=== PATIENT | female | born 1960 | race Caucasian/White ===

== ENCOUNTER 2022-01-10 11:37 | Emergency (ER) | payer BC, SELFPAY ==
--- NOTE | ~2022-01-10 | XR_ITS ---
EXAMINATION: XR ribs RT 2V w CXR 2V INDICATION: Right-sided chest pain TECHNIQUE: PA and lateral views of the chest and 3 views of the right ribs were obtained. COMPARISON: 09/27/2017 FINDINGS: The lungs are free of acute opacities. There is no pleural effusion or pneumothorax. The ca rdiomediastinal silhouette is normal. No displaced rib fracture is identified. There is moderate thor acic spondylosis. IMPRESSION: 1. No acute cardiopulmonary abnormality or evidence of displaced rib fracture. Reviewed, dictated and finalized at location A.
--- NOTE | ~2022-01-10 | CT_ITS ---
EXAMINATION: CT abdomen pelvis w con EXAM DATE: 01/10/2022 15:02 INDICATION: Fall blunt trauma, RUQ pain. TECHNIQUE: Spiral CT of the abdomen and pelvis was performed following intravenous injection of 100 m L Omnipaque 350. Axial, coronal and sagittal images of the abdomen and pelvis were reviewed. The do se-length product (DLP) for this examination was 1203.26 mGy-cm. The exposure was tailored according to patient size (auto mA exposure control), and iterative reconstruction (ASIR) was used as addition al dose reduction technique. There is no prior study for comparison. FINDINGS: No solid organ injury. There are no acute fractures identified. The liver, spleen, adrena l glands and pancreas are unremarkable. Gallbladder is unremarkable. No biliary obstruction. Amadou l and splenic veins are patent. Kidneys enhance symmetrically. There is no hydronephrosis. The ut erus is anteverted and morphologically normal. The bladder is unremarkable. There is no retroperit shirley or pelvic lymphadenopathy. The appendix is normal. The stomach and small bowel are unremarkable. There is expected amount of c olonic stool. No free intraperitoneal gas. There is cardiomegaly. The lung bases are unremarkabl e. Chronic mild to moderate L5 burst fracture with only about 2 mm retropulsion superior endplate. N o spondylolysis. IMPRESSION: 1. No acute intra-abdominal findings. 2. Chronic mild to moderate L5 burst fracture. Reviewed, dictated and finalized at location B.
--- NOTE | ~2022-01-10 | XR_ITS ---
EXAMINATION: XR hand RT min 3V DATE: 01/10/2022 12:14 INDICATION: Right hand injury and swelling. TECHNIQUE: 3 views of right hand were obtained. COMPARISON: None. FINDINGS: Bone alignment is normal. No acute fracture. There is an old fracture deformity of distal r adius with 4 degrees dorsal tilt of the distal articular surface. There is moderate osteoarthritis of triscaphe joint and mild osteoarthritis of first carpal metacarpal joint. There is mild osteoarthrit is of most of the interphalangeal joints. IMPRESSION: 1. Polyarticular osteoarthritis. 2. Fracture deformity of distal radius, likely chronic. Reviewed, dictated and finalized at location A.
[2022-01-10 11:39] VITALS: PULSE 82; RESP 18; TEMP 36.2; O2SAT 98
--- NOTE | 2022-01-10 13:30 | ED.FALL ---
HPI - Fall General Chief Complaint: Fall Stated Complaint: fall/hand injury Time Seen by Provider: 01/10/22 13:22 Source: patient and RN notes reviewed Mode of arrival: ambulatory Limitations: no limitations History of Present Illness HPI Narrative: This a 61 year old female who presents for evaluation of right rib pain and right upper abdominal pain s/p fall. Patient states she accidentally fell on gum balls yesterday. She fell onto right right rib and abdomen. She also hit her right hand on the ground. She denies hitting head, LOC, or neck pain . She has pain worse with breathing but she denies shortness of breath. She has swelling and pain to her right hand. She denies fever, nausea, vomiting or dizziness. She denies taking anticoagulation. Related Data Allergies Allergy/AdvReac Type Severity Reaction Status Date / Time No Known Allergies Allergy Unknown Unverified 09/27/17 14:44 Review of Systems Review of Systems: All systems reviewed & are unremarkable except as noted in HPI and below PMFSH Past Medical History Medical History (Updated 01/10/22 @ 15:28 by Elizabet Hamilton MD) Anxiety Diabetes mellitus Hyperlipidemia Hypertension Surgical History Surgical History (Updated 01/10/22 @ 13:33 by Elizabet Hamilton MD) H/O section Social History Social History (Updated 01/10/22 @ 13:33 by Elizabet Hamilton MD) Smoking status: Never smoker Exam Const: General: no acute distress and alert Orientation/consciousness: patient oriented x3 HENMT: Head: normocephalic and atraumatic Face and sinus: normal facial exam, sinuses nontender and face symmetric Mouth: Yes Normal oral and palatal mucosa present, Yes lip normal, Yes oropharynx normal and Yes moist mucous membranes Eyes: Pupils: Equal, round and reactive pupils present EOM: EOMs intact bilaterally Neck: Neck: normal visual inspection Chest: Chest palpation & inspection: tenderness Other: right breast ecchymosis Resp: Effort & Inspection: normal respiratory effort Auscultation: clear to auscultation bilaterally Cardio: Rate: regular rate Rhythm: regular rhythm Heart sounds: no murmurs GI: GI Palp: Yes Soft to palpation, Yes Tenderness to palpation present (GI) (RUQ) and Yes Guarding due to palpation present (GI) Auscultation: normal bowel sounds Back/Spine/Pelvis: Back: no CVA tenderness Skin: Other: right breast ecchymosis Neuro: General: patient oriented x3, moves all extremities and CN's II-XI intact bilaterally Psych: Mental Status: mental status grossly normal Affect: normal affect Course Reevaluation(s) Reevaluation #1: I Discussed with patient no acute fractures or intraabdominal injuries that are acute. She is aware of chronic lumbar fracture and is not having pain. Date: 01/10/22 Time: 15:25 Vital Signs Vital signs: Vital Signs Temperature 97.2 F L 01/10/22 11:39 Pulse Rate 82 01/10/22 11:39 Respiratory Rate 18 01/10/22 11:39 Pulse Oximetry 98 01/10/22 11:39 Temperature 97.2 F L 01/10/22 11:39 Pulse Rate 58 L 01/10/22 15:30 Respiratory Rate 16 01/10/22 15:30 Blood Pressure 178/80 H 01/10/22 15:30 Pulse Oximetry 97 01/10/22 15:30 MDM - Fall Lab Data Attestation: I reviewed the patient's lab results. Result diagrams: 01/10/22 13:35 01/10/22 13:35 Labs: Lab Results 01/10/22 01/10/22 01/10/22 Range/Units 13:35 13:35 13:35 WBC 7.0 (4.5-10.0) K/mm3 RBC 3.58 L (4.2-5.4) M/mm3 Hgb 11.7 L (12.0-15.0) g/dL Hct 36.4 L (37.0-47.0) % MCV 101.7 H (80-100) fl MCH 32.7 (26-34) pg MCHC 32.1 (32-36) g/dl RDW 12.3 (11.5-14.5) % Plt Count 273 (150-375) k/mm3 MPV 9.4 (7.4-10.4) fl Immature Gran % (Auto) 0.3 (0-0.5) % Neut % (Auto) 65.7 (45.5-73.1) % Lymph % (Auto) 22.6 (18.3-44.2) % [place] % (Auto) 9.7 H (2.6-8.5) % Eos % (Auto) 1.4 (0-4.4) % Baso % (Auto) 0.3 (0.2-1
[2022-01-10 13:45] LABS: Basophils Percent Auto 0.3 % (0.2-1.2); Eosinophils Absolute Auto 0.1 K/mm3 (0-0.3); Eosinophils Percent Auto 1.4 % (0-4.4); Hematocrit 36.4 % (37.0-47.0); Hemoglobin 11.7 g/dL (12.0-15.0); Immature Granulocyte Absolute 0.02 K/mm3 (0.00-0.031); Immature Granulocyte Percent A 0.3 % (0-0.5); Lymphocytes Absolute Auto 1.58 K/mm3 (0.9-3.2); Lymphocytes Percent Auto 22.6 % (18.3-44.2); Mean Corpuscular HGB Conc 32.1 g/dl (32-36); Mean Corpuscular Hemoglobin 32.7 pg (26-34); Mean Corpuscular Volume 101.7 fl (80-100); Mean Platelet Volume 9.4 fl (7.4-10.4); Monocytes Absolute Auto 0.7 K/mm3 (0.1-0.6); Monocytes Percent Auto 9.7 % (2.6-8.5); Neutrophils Absolute Auto 4.6 K/mm3 (1.3-6.7); Neutrophils Percent Auto 65.7 % (45.5-73.1); Platelet Count Result 273 k/mm3 (150-375); Red Blood Count 3.58 M/mm3 (4.2-5.4); Red Cell Distribution Width 12.3 % (11.5-14.5)
[2022-01-10 14:01] LABS: Prothrombin Time 13.1 Seconds (11.1-14.7)
[2022-01-10 14:02] LABS: Partial Thromboplastin Time 27.2 SECONDS (22.3-36.8)
[2022-01-10 14:04] LABS: Alanine Aminotransferase 23 U/L (4-35); Albumin Level 4.5 g/dL (3.5-5.1); Alkaline Phosphatase 86 U/L (38-126); Anion Gap 7 mmol/L (8-16); Aspartate Amino Transferase 27 U/L (14-36); Bilirubin,Total 0.7 mg/dL (0.2-1.3); Blood Urea Nitrogen 19 mg/dL (7-17); Calcium 9.1 mg/dL (8.4-10.2); Carbon Dioxide 30 mmol/L (22-30); Chloride 99 mmol/L (98-107); Estimated CRCL calculation 75 ml/min; Estimated Glomerular Filt Rate > 60; Glucose 106 mg/dL (65-110); Potassium 3.7 mmol/L (3.4-5.0); Sodium 136 mmol/L (137-145)
[2022-01-10 15:30] VITALS: BP 178/80; PULSE 58; RESP 16; O2SAT 97
== END 2022-01-10 15:51 | disposition home or self-care (01) ==
PROVIDERS: Emergency Provider General Practice; PCP Internal Medicine
DX: S30.1XXA Contusion of abdominal wall, initial encounter (principal); S20.01XA Contusion of right breast, initial encounter; S60.221A Contusion of right hand, initial encounter; E78.5 Hyperlipidemia, unspecified; E11.9 Type 2 diabetes mellitus without complications; I10 Essential (primary) hypertension; M18.9 Osteoarthritis of first carpometacarpal joint, unspecified; M19.031 Primary osteoarthritis, right wrist; W01.0XXA Fall on same level from slipping, tripping and stumbling without subsequent striking against object, initial encounter
CPT/HCPCS: 36415; 71046; 71100; 73130; 74177; 80053; 85025; 85610; 85730; 96374; 99284; J0131; Q9967

== ENCOUNTER 2022-01-23 12:56 | Observation (INO) | payer BC, SELFPAY ==
[2022-01-23] VITALS (11 sets, daily range): BP systolic 134–179; BP diastolic 42–75; PULSE 60–70; RESP 13–20; TEMP 36.5–37.2; O2SAT 94–98; BMI 42.0
--- NOTE | ~2022-01-23 | XR_ITS ---
EXAMINATION: XR chest 2V DATE: 01/23/2022 13:28 INDICATION: Left-sided chest pain radiating to the back. Right-sided rib pain post fall. TECHNIQUE: PA and lateral views of the chest were obtained. COMPARISON: Chest radiograph dated 01/10/2022 FINDINGS: The lungs remain clear with no focal airspace opacities, pulmonary edema, pleural effusion or pneumot horax. Or dramatically with prominent left paracardial fat pad. Visualized bones and soft tissues are unremarkable. IMPRESSION: 1. Cardiomegaly. No acute cardiopulmonary disease. Reviewed, dictated and finalized at location A.
--- NOTE | 2022-01-23 13:05 | ECG_ITS ---
Measurements Intervals [place] Rate: 63 P: 81 AK: 182 QRS: 77 QRSD: 101 T: 48 QT: 370 QTc: 380 Interpretive Statements SINUS RHYTHM WITH MARKED SINUS ARRHYTHMIA OTHERWISE NORMAL ECG NO PREVIOUS ECG AVAILABLE FOR COMPARISON Electronically Signed On 01-24-2022 16:06:25 CDT by Lm Andrade M.D.
[2022-01-23 13:11] LABS: Glucose Point of Care 73 mg/dl (65-105)
[2022-01-23 13:18] LABS: Basophils Percent Auto 0.4 % (0.2-1.2); Eosinophils Absolute Auto 0.2 K/mm3 (0-0.3); Hematocrit 36.5 % (37.0-47.0); Hemoglobin 12.5 g/dL (12.0-15.0); Immature Granulocyte Absolute 0.03 K/mm3 (0.00-0.031); Immature Granulocyte Percent A 0.4 % (0-0.5); Lymphocytes Absolute Auto 1.81 K/mm3 (0.9-3.2); Lymphocytes Percent Auto 23.8 % (18.3-44.2); Mean Corpuscular HGB Conc 34.2 g/dl (32-36); Mean Corpuscular Hemoglobin 33.3 pg (26-34); Mean Corpuscular Volume 97.3 fl (80-100); Mean Platelet Volume 9.2 fl (7.4-10.4); Monocytes Absolute Auto 0.9 K/mm3 (0.1-0.6); Monocytes Percent Auto 11.7 % (2.6-8.5); Neutrophils Absolute Auto 4.7 K/mm3 (1.3-6.7); Neutrophils Percent Auto 61.7 % (45.5-73.1); Platelet Count Result 351 k/mm3 (150-375); Red Blood Count 3.75 M/mm3 (4.2-5.4); Red Cell Distribution Width 12.4 % (11.5-14.5); White Blood Count 7.6 K/mm3 (4.5-10.0)
--- NOTE | 2022-01-23 13:20 | ED.CHESTPAIN ---
HPI - Chest Pain General Chief Complaint: Chest Pain Stated Complaint: chest pain Time Seen by Provider: 01/23/22 13:04 Source: patient Mode of arrival: ambulatory Limitations: no limitations History of Present Illness HPI narrative: Patient is a 61-year-old female complaining of chest pain, midsternal, tightness, was 8 out of 10, currently denies any pain, radiating to back that started this morning. Patient denies any shortness of breath, abdominal pain, nausea, vomiting, diaphoresis, fever or chills. Related Data Allergies Allergy/AdvReac Type Severity Reaction Status Date / Time No Known Allergies Allergy Unknown Unverified 09/27/17 14:44 Review of Systems Review of Systems: All systems reviewed & are unremarkable except as noted in HPI and below Constitutional: Constitutional: Denies body ache(s), Denies chills, Denies excessive sweating, Denies fatigue, Denies fever(s), Denies headache(s), Denies lethargy, Denies malaise, Denies weakness and Denies weight loss Eyes: Eyes: Denies blurry vision, Denies change in vision and Denies loss of vision ENT: Denies dizziness, Denies ear discharge, Denies headache(s), Denies lip swelling, Denies epistaxis, Denies nasal congestion, Denies neck pain, Denies throat swelling and Denies tongue swelling Cardiovascular: Cardiovascular: Denies diaphoresis, Denies rapid heart rate, Denies edema, Denies irregular heart rhythm, Denies lightheadedness, Denies palpitations, Denies dyspnea and Denies dyspnea on exertion Respiratory: Respiratory: Denies chest congestion, Denies cough, Denies hemoptysis, Denies dyspnea and Denies dyspnea on exertion Gastrointestinal: Gastrointestinal: Denies abdominal pain, Denies melena, Denies hematochezia, Denies diarrhea, Denies nausea, Denies vomiting and Denies hematemesis Musculoskeletal: Musculoskeletal: Denies abnormal gait, Denies deformity, Denies joint swelling, Denies limited range of motion, Denies neck pain and Denies numbness Neurologic: Denies Abnormal speech present, Denies abnormal gait, Denies confusion, Denies dizziness, Denies headache(s), Denies focal weakness, Denies loss of vision, Denies numbness, Denies Other visual disturbances, Denies Sensory deficit (Neuro) and Denies weakness Psychiatric: Psychiatric: Denies confusion, Denies depression, Denies auditory hallucinations, Denies homicidal ideation and Denies suicidal ideation Endocrine: Endocrine: Denies cold intolerance, Denies excessive sweating, Denies fatigue, Denies heat intolerance and Denies palpitations Hematologic/Lymphatic: Hematologic/Lymphatic: Denies easy bleeding and Denies easy bruising Allergic/Immunologic: Allergic/Immunologic: Denies lip swelling, Denies throat swelling and Denies tongue swelling PMFSH Past Medical History Medical History Anxiety Diabetes mellitus Hyperlipidemia Hypertension Surgical History Surgical History H/O section Social History Social History Smoking status: Never smoker Exam Const: General: cooperative, healthy appearing, comfortable, no acute distress, well developed, alert and awake; No confusion Orientation/consciousness: oriented to person, oriented to place, oriented to time, patient oriented x3 and No confusion Limitations: no limitations HENMT: Head: normal to inspection, normocephalic and atraumatic Ears: hearing grossly normal bilaterally, TM normal on the right and TM normal on the left General nose exam: Normal external nose present, Normal nares present and No nasal discharge present Face and sinus: normal facial exam Mouth: Yes Normal oral and palatal mucosa present, Yes lip normal, Yes tongue normal and Yes oropharynx normal Throat: posterior oropharynx normal, tonsils normal and uvula midline Eyes: General: appearance normal, both eyes and all
[2022-01-23 13:29] LABS: INR 0.9
[2022-01-23 13:30] LABS: Partial Thromboplastin Time 25.8 SECONDS (22.3-36.8)
[2022-01-23 13:37] LABS: Alanine Aminotransferase 26 U/L (4-35); Albumin Level 4.6 g/dL (3.5-5.1); Alkaline Phosphatase 89 U/L (38-126); Anion Gap 8 mmol/L (8-16); Aspartate Amino Transferase 39 U/L (14-36); Bilirubin,Total 0.5 mg/dL (0.2-1.3); Blood Urea Nitrogen 27 mg/dL (7-17); Calcium 9.3 mg/dL (8.4-10.2); Carbon Dioxide 29 mmol/L (22-30); Chloride 102 mmol/L (98-107); Estimated CRCL calculation 67 ml/min; Estimated Glomerular Filt Rate > 60; Glucose 65 mg/dL (65-110); Potassium 4.2 mmol/L (3.4-5.0); Sodium 139 mmol/L (137-145)
[2022-01-23 13:44] LABS: Troponin I < 0.012 ng/mL (0.000-0.034)
[2022-01-23] MEDS: ASPIRIN 81 MG CHEWABLE TABLET 324 MG PO (14:16)
[2022-01-23] MEDS: LORazepam (*CRX) 0.5 MG TABLET PO (15:26)
[2022-01-23 16:53] LABS: Troponin I < 0.012 ng/mL (0.000-0.034)
--- NOTE | 2022-01-23 17:01 | PM.IMHP ---
H&P: HPI History of Present Illness Date/Time: Patient was placed observation status for expected length of stay less than 23 hours for management, will plan to re-evaluate tomorrow for improvement. 01/23/22 17:01 Chief Complaint: Chest pain Narrative: Ms. Buchanan is a 61-year-old female who presented emergency room with complaints of chest discomfort. Patient states that she was having a telephone conversation with her sister and when she got off the phone she began having a very sharp pain under her left breast. Patient states she then began having pain in her middle back. Patient states that she is not feel the pain was associated to each other. Patient states the pain under her left breast did not radiate through to her back. Patient denied any associated shortness of breath, diaphoresis, nausea, or vomiting. Patient states that when she rested on her couch and tried to relax the pain felt much improved. Patient states she has been under a large amount of stress recently in does believe that this could be a part of the reason she had chest discomfort. Patient states she is chest pain-free at this on 01/10 after falling and having right-sided pain. Patient states that since her fall she has continued to have right-sided pain under her right breast. Patient states the pain has been improving on a daily basis. Patient states that she has been placed on Xanax recently for anxiety which has been very helpful. Patient states she does have a known history of diabetes mellitus type 1. Patient states she has been diabetic for 50 years. Patient states she monitors her blood glucose is very closely and her last hemoglobin A1c was 6.2. Patient also had an history of hypertension, anxiety, depression, dyslipidemia, and asthma. Review of Systems Review of Systems: A 12 point review of systems was completed patient all pertinent positive and negative per HPI the remainder are unremarkable. [facility] Past Medical History Medical History (Updated 01/23/22 @ 17:11 by Evangelina Vogel APRN) Anxiety Asthma Diabetes mellitus Hyperlipidemia Hypertension Surgical History Surgical History H/O section Family History Family History (Updated 01/23/22 @ 17:10 by Evangelina Vogel APRN) Father Heart disease, Onset Age: 70 Mother Heart disease, Onset Age: 70 Sibling Heart valve replaced Social History Social History Smoking status: Never smoker Meds Home Medications and Allergies Allergies Allergy/AdvReac Type Severity Reaction Status Date / Time No Known Allergies Allergy Unknown Unverified 09/27/17 14:44 Vital Signs Vital Signs - 24 hr 01/23/22 12:59 01/23/22 13:13 01/23/22 14:16 Temperature 37.2 C Pulse Rate 70 64 69 Respiratory Rate 13 13 Blood Pressure 160/75 H 179/67 H Pulse Oximetry 98 98 01/23/22 15:25 01/23/22 17:00 Temperature Pulse Rate 69 60 Respiratory Rate 18 13 Blood Pressure 167/55 H 169/69 H Pulse Oximetry 94 98 Exam Narrative: Constitutional: Patient is a 61 year old female who is well-nourished in no acute distress. Patient is alert and oriented x3 HEENT: Moist mucous membranes. No scleral icterus. No lymphadenopathy. Neck: No carotid bruits noted no JVD noted Lungs: Lung sounds are clear to auscultation bilaterally. No accessory muscle use. No rhonchi, rales, or wheezes noted. Cardiovascular: Apical pulse is regular rate and rhythm. S1-S2 noted, no S3 or S4 noted. No gallops, murmurs, or rubs noted. Abdomen: Soft, round, and nontender. No palpable masses. Extremities: No edema. Nontender. Skin: No rashes or lesions. Warm and dry. Skin is intact. Neurological: No focal neurological deficits. Cranial nerves II-XII grossly intact. Psychiatric: Cooperative, appropriate affect. Patient is very tearful at this time. H&P: Results Labs Labs:
--- NOTE | 2022-01-23 17:49 | PC.NURSE ---
Report received by ROSEANNA Monroe at [id number]. All questions answered and plan of care reviewed. Patient to go to IMU room 210.
--- NOTE | 2022-01-23 17:50 | ADMGEN ---
This patient, Anastasia Buchanan, was admitted to IMU Room 210-01 at 1748. Patient/family oriented to hospital policies and general routines including ID bracelet, bed and alarms, visiting hours, pain management, procedures, bathroom and other care routines, personal items, smoking policy, room service/diet, and visiting hours. Information on how to activate the Rapid Response Team has been discussed. Patient/Family are encouraged to report perceived risks to care and to ask questions if they do not understand what they are told or what they should do.
[2022-01-23 19:48] LABS: Troponin I < 0.012 ng/mL (0.000-0.034)
--- NOTE | 2022-01-23 21:00 | PC.NURSE ---
According to patient's dexcom patient's blood sugar is 189.
[2022-01-23] MEDS: ACETAMINOPHEN 325 MG TABLET 650 MG PO (21:02)
[2022-01-23] MEDS: INSULIN ASPART (*BKC) 100 UNITS/ML 10 UNITS SUB-Q (21:07)
[2022-01-23] MEDS: hydrALAZINE HCL 50 MG TABLET PO (22:30)
[2022-01-23] MEDS: INSULIN GLARGINE (*BKC) 100 UNITS/ML 50 UNITS SUB-Q (22:30)
[2022-01-24] VITALS (10 sets, daily range): BP systolic 131–144; BP diastolic 53–61; PULSE 53–75; RESP 16–20; TEMP 36.6–36.9; O2SAT 96–99; BMI 42.0
[2022-01-24 05:48] LABS: Basophils Percent Auto 0.4 % (0.2-1.2); Eosinophils Absolute Auto 0.1 K/mm3 (0-0.3); Eosinophils Percent Auto 1.9 % (0-4.4); Hemoglobin 11.8 g/dL (12.0-15.0); Immature Granulocyte Absolute 0.03 K/mm3 (0.00-0.031); Immature Granulocyte Percent A 0.4 % (0-0.5); Lymphocytes Absolute Auto 2.03 K/mm3 (0.9-3.2); Lymphocytes Percent Auto 29.5 % (18.3-44.2); Mean Corpuscular HGB Conc 32.8 g/dl (32-36); Mean Corpuscular Hemoglobin 32.9 pg (26-34); Mean Corpuscular Volume 100.3 fl (80-100); Mean Platelet Volume 9.3 fl (7.4-10.4); Monocytes Absolute Auto 0.8 K/mm3 (0.1-0.6); Monocytes Percent Auto 11.5 % (2.6-8.5); Neutrophils Absolute Auto 3.9 K/mm3 (1.3-6.7); Neutrophils Percent Auto 56.3 % (45.5-73.1); Platelet Count Result 338 k/mm3 (150-375); Red Blood Count 3.59 M/mm3 (4.2-5.4); Red Cell Distribution Width 12.4 % (11.5-14.5); White Blood Count 6.9 K/mm3 (4.5-10.0)
[2022-01-24 06:02] LABS: Anion Gap 6 mmol/L (8-16); Blood Urea Nitrogen 20 mg/dL (7-17); Calcium 9.1 mg/dL (8.4-10.2); Carbon Dioxide 30 mmol/L (22-30); Chloride 104 mmol/L (98-107); Estimated CRCL calculation 67 ml/min; Estimated Glomerular Filt Rate > 60; Glucose 49 mg/dL (65-110); Potassium 3.6 mmol/L (3.4-5.0); Sodium 140 mmol/L (137-145)
[2022-01-24] MEDS: hydrALAZINE HCL 50 MG TABLET PO ×2 (06:07→14:59)
[2022-01-24 06:23] LABS: Glucose Point of Care 115 mg/dl (65-105)
[2022-01-24 08:45] LABS: Glucose Point of Care 135 mg/dl (65-105)
[2022-01-24] MEDS: INSULIN ASPART (*BKC) 100 UNITS/ML 10 UNITS SUB-Q (08:51)
[2022-01-24] MEDS: UMECLIDINIUM BROMIDE 62.5 MCG ELLIPTA 1 PUFF INHALATION (08:51)
[2022-01-24] MEDS: FLUTICASONE/SALMETEROL 230-21 MCG INHALER 1 PUFF 2 PUFF INHALATION (08:51)
[2022-01-24] MEDS: NEBIVOLOL HCL 5 MG TABLET 10 MG PO (08:52)
[2022-01-24] MEDS: hydroCHLOROthiazide 25 MG TABLET PO (08:52)
[2022-01-24] MEDS: EZETIMIBE 10 MG TABLET PO (08:52)
[2022-01-24] MEDS: ENOXAPARIN 40 MG/0.4 ML SYRINGE SUB-Q (08:52)
[2022-01-24] MEDS: VENLAFAXINE HCL XR 75 MG CAP.ER.24H PO (08:52)
[2022-01-24] MEDS: ROSUVASTATIN 10 MG TABLET 20 MG PO (08:52)
[2022-01-24] MEDS: LOSARTAN POTASSIUM 100 MG TABLET PO (08:53)
[2022-01-24 12:05] LABS: Glucose Point of Care 85 mg/dl (65-105)
[2022-01-24] MEDS: INSULIN ASPART (*BKC) 100 UNITS/ML 6 UNITS SUB-Q (12:32)
--- NOTE | 2022-01-24 12:33 | PM.IMPN ---
Progress Note: A&P Assessment and Plan (1) Chest pain: Code(s): R07.9 - Chest pain, unspecified Status: Acute Assessment and Plan: -serial troponins negative -EKG no ST elevation/depression -had full strength asprin in ED -suspect pain is secondary to stress/anxiety, however with her long hx of DM she would benefit from a stress test -also notes a family hx of bicuspic aortic valve and was told but her brother's cardiothoracic surgeon that she should get an echo -will check echo -cardiology consult placed as she will likely need outpatient follow up. Her is followed by Dr. Andrade and she would like to also join his service. (2) Diabetes mellitus: Code(s): E11.9 - Type 2 diabetes mellitus without complications Status: Acute Assessment and Plan: -pt takes 10 units of insulin TIDWM scheduled and 50 units of Lantus QHS -was running low, 49 this morning, but rebounded quite quickly to 135 with a snack -pt keeps very tight control of her glucose and states being in the 60s/70s is normal for her -I decreased the dose to 6 units scheduled with a low dose sliding scale while hospitalized to avoid any further episodes of hypoglycemia Subjective Date/time seen: 01/24/22 12:33 Interval history: 61 yo female w/ hx of HTN, HLD, DM, anxiety, asthma, admitted for chest pain. Pt states her sharp/stabbing chest pain and back pain resolved overnight after being admitted. She denies cp/sob/nausea/OLEARY/dizziness/N/V/abd pain. She has BLE edema, L>R, but states this has been present all of her life. No LE pain, erythema, or warmth. Review of Systems Review of Systems: All systems reviewed & are unremarkable except as noted in HPI and below Exam Narrative: General: No acute distress, non toxic appearing, extremely anxious, tearful at times Eyes: PERRL, no scleral icterus HEENT: NCAT, external ears normal, MMM Respiratory: No respiratory distress, Lungs CTA bilaterally, no wheezing Cardiovascular: RRR, no murmur Abdominal: Soft, nontender, non distended, no rebound or guarding Musculoskeletal: Moves all 4 extremities, no edema Neurological: A/Ox3, speech clear, no facial asymmetry Skin: Warm, dry, no rashes Psychiatric: Normal affect, anxious mood Objective Data Vital Signs Vital Signs: Vital Signs - 24 hr 01/23/22 12:59 01/23/22 13:13 01/23/22 14:16 Temperature 98.9 F Pulse Rate 70 64 69 Respiratory Rate 13 13 Blood Pressure 160/75 H 179/67 H Pulse Oximetry 98 98 01/23/22 15:25 01/23/22 17:00 01/23/22 17:31 Temperature Pulse Rate 69 60 67 Respiratory Rate 18 13 18 Blood Pressure 167/55 H 169/69 H 168/62 H Pulse Oximetry 94 98 97 01/23/22 17:58 01/23/22 18:00 01/23/22 20:00 Temperature 98.0 F 97.9 F Pulse Rate 68 70 69 Respiratory Rate 14 20 Blood Pressure 143/48 H 140/42 L Pulse Oximetry 98 98 01/23/22 22:00 01/23/22 23:35 01/24/22 00:00 Temperature 97.7 F Pulse Rate 61 63 64 Respiratory Rate 20 Blood Pressure 134/54 L Pulse Oximetry 98 01/24/22 02:00 01/24/22 04:00 01/24/22 06:00 Temperature 97.9 F Pulse Rate 57 L 53 L 64 Respiratory Rate 18 Blood Pressure 133/61 Pulse Oximetry 99 01/24/22 08:00 01/24/22 08:55 01/24/22 10:00 Temperature 98.4 F Pulse Rate 69 72 Respiratory Rate 16 Blood Pressure 144/53 H Pulse Oximetry 98 96 01/24/22 12:22 Temperature 97.9 F Pulse Rate 56 L Respiratory Rate 20 Blood Pressure 131/55 L Pulse Oximetry 97 Intake/Output Intake/Output: Intake & Output 01/21/22 01/22/22 01/23/22 01/24/22 23:59 23:59 23:59 23:59 Intake Total 700 Balance 700 Meds/Results Medications: Active Medications Generic Name Dose Route Start Last Admin Trade Name Freq PRN Reason Stop Dose Admin Acetaminophen 650 mg 01/23/22 16:59 01/23/22 21:02 Acetaminophen 325 Mg Tablet PO 650 mg Q6H PRN Administration Mild Pain (1-3) or Fever [place]
--- NOTE | 2022-01-24 13:15 | PM.CNCAR ---
Assessment and Plan Additional Plan This is a 61-year-old lady with no history of known coronary artery disease but obviously with risk factors particularly longstanding diabetes. Having said that her diabetes is under excellent control. She or symptoms now are rather atypical and not suggestive of myocardial ischemia. I believe since acute coronary syndrome has been ruled out she can be discharged for outpatient workup. I would recommend arrange for a Lexiscan stress test in the office as an outpatient after which I will see her in review the findings. Thank you very much for consulting me to see this nice lady. Lm Andrade MD [facility] History of Present Illness History of Present Illness Consult date/time: 01/24/22 13:15 Consult reason: chest pain Reason For Visit: chest pain Narrative: This is a very pleasant 61-year-old lady am seeing at the request of the hospitalist because of chest pain. She is not known to have any cardiac problems before this and came to the hospital yesterday in the afternoon because of chest pain that began at home. She states that she has been under tremendous amount of stress at home caring for an adult alcoholic son. She was very stressed by this and yesterday started to have which he describes is a warm sensation in the interscapular region of her back. Shortly after that she started to experience some dull pain a mild pressure-like sensation in the soft substernal region altogether this lasted about 15-20 minutes and then subsided. She states that when it was at its worst the pain actually had a sharp stabbing quality to it as well. She notified her as to these symptoms and they decided to come to the emergency room to be evaluated as they are concerned about coronary disease given his history of coronary disease and her history of longstanding diabetes. The patient states that she had a negative emergency room evaluation performed her EKG did look unremarkable as did free troponin levels. He is significantly obese with a BMI of 42 but does not notice any exists history of exertional symptomatology at home in general. She is able to carry out her activities of daily living but is not able to walk vigorously because of asthma as well as some degenerative joint disease in her knees. She does have excellent control of her diabetes she also has a history of hypertension and dyslipidemia. Her primary care is provided by Dr. Russell at [place] and she also has a learning and development associate they are helping to manage her diabetes. She states that her learning and development associate had her undergo a couple of stress tests in the past because of some a intermittent chest pain which have been negative. That was many years ago. She is not reporting any symptoms of orthopnea PND or accumulating edema. She does state that she thinks her blood pressure control has not been ideal lately and has not had any any other new health concerns. Review of Systems Constitutional: Constitutional: Reports no additional constitutional complaints Eyes: Eyes: Reports no additional eye complaints ENT: Reports system reviewed and no additional complaints, except as documented Cardiovascular: Cardiovascular: Reports as per HPI Respiratory: Respiratory: Reports no additional respiratory complaints Gastrointestinal: Gastrointestinal: Reports no additional gastrointestinal complaints Musculoskeletal: Musculoskeletal: Reports no additional musculoskeletal complaints Neurologic: Reports system reviewed and no additional complaints, except as documented Psychiatric: Psychiatric: Reports as per HPI Endocrine: Endocrine: Reports no additional endocrine complaints Hematologic/Lymphatic: Hematologic/Lymphatic: Reports no additional hematologic/lymphatic complaints Allergic/Immunologic: Allergic/Immunologic: Reports no additional allergic/immunologic complaints [facility] Past Medical History Medical History (Updated 01/23/22 @ 17:11 by Evangelina Vogel,
--- NOTE | 2022-01-24 14:06 | PM.DS ---
DS: Admitting Diagnosis Discharge Date 01/24/22 Admitting Diagnosis chest pain DS: Discharge Diagnosis Discharge Diagnosis (1) Chest pain: Code(s): R07.9 - Chest pain, unspecified Status: Acute Assessment and Plan: -serial troponins negative -EKG no ST elevation/depression -had full strength asprin in ED -suspect pain is secondary to stress/anxiety, however with her long hx of DM she would benefit from a stress test -also notes a family hx of bicuspic aortic valve and was told but her brother's cardiothoracic surgeon that she should get an echo -cardiology consult placed. Her is followed by Dr. Andrade and she would like to also join his service. -seen by Dr. Andrade who recommends discharging home and she will follow up for an outpatient stress test -strict return precautions provided (2) Diabetes mellitus: Code(s): E11.9 - Type 2 diabetes mellitus without complications Status: Acute Assessment and Plan: -pt takes 10 units of insulin TIDWM scheduled and 50 units of Lantus QHS -was running low, 49 this morning, but rebounded quite quickly to 135 with a snack -pt keeps very tight control of her glucose and states being in the 60s/70s is normal for her -I decreased the dose to 6 units scheduled with a low dose sliding scale while hospitalized to avoid any further episodes of hypoglycemia -sees her travel professional every 3-4 months, she will continue regular follow up (3) Anxiety: Code(s): F41.9 - Anxiety disorder, unspecified Status: Inactive Assessment and Plan: -pt going through some serious stressors in her life including an adult son currently in rehab -she takes xanax which helps some, also on Effexor and sees a therapist 2x per month -no SI/HI DS: Summary Hospital Course Reason for hospitalization: 61 yo female w/ hx of HTN, HLD, DM, anxiety, asthma, admitted for chest pain. Please see HPI for further details. Hospital Course: Please see above for details of hospital course. Status at Discharge Cognitive/behavioral status at discharge: stable Functional status at discharge: independent ambulation Time Spent with Patient Time attestation: Total time spent providing and/or coordinating discharge services: 35 Time spent: Greater than 30 minutes Exam Narrative: General: No acute distress, non toxic appearing, extremely anxious, tearful at times Eyes: PERRL, no scleral icterus HEENT: NCAT, external ears normal, MMM Respiratory: No respiratory distress, Lungs CTA bilaterally, no wheezing Cardiovascular: RRR, no murmur Abdominal: Soft, nontender, non distended, no rebound or guarding Musculoskeletal: Moves all 4 extremities, no edema Neurological: A/Ox3, speech clear, no facial asymmetry Skin: Warm, dry, no rashes Psychiatric: Normal affect, anxious mood DS: Data Data Completed and Pending Labs on day of discharge: Labs from last 24 hours 01/24/22 01/24/22 01/24/22 11:36 08:00 06:13 WBC RBC Hgb Hct MCV MCH MCHC RDW Plt Count MPV Immature Gran % (Auto) Neut % (Auto) Lymph % (Auto) [place] % (Auto) Eos % (Auto) Baso % (Auto) Lymph # (Auto) [place] # (Auto) Eos # (Auto) Baso # (Auto) Abs Immat Gran (auto) Absolute Neuts (auto) Absolute Nucleated RBC Nucleated RBC % Sodium Potassium Chloride Carbon Dioxide Anion Gap BUN Creatinine Estim Creat Clear Calc Estimated GFR Glucose POC Capillary Glucose 85 135 H 115 H Calcium Troponin I 01/24/22 01/24/22 01/23/22 04:55 04:55 19:21 WBC 6.9 RBC 3.59 L Hgb 11.8 L Hct 36.0 L MCV 100.3 H MCH 32.9 MCHC 32.8 RDW 12.4 Plt Count 338 MPV 9.3 Immature Gran % (Auto) 0.4 Neut % (Auto) 56.3 Lymph % (Auto) 29.5 [place] % (Auto) 11.5 H Eos % (Auto) 1.9 Baso % (Auto) 0.4 Lymph # (Auto) 2.
== END 2022-01-24 15:12 | disposition home or self-care (01) ==
LOC: ANHED 14:50 → ANHIMU 16:56
PROVIDERS: Nurse Practitioner Adult Health; Physician Assistant; Admitting Provider Internal Medicine; Emergency Provider Emergency Medicine; PCP Internal Medicine; Visit Provider Family Medicine
DX: R07.9 Chest pain, unspecified (principal); I10 Essential (primary) hypertension; E10.9 Type 1 diabetes mellitus without complications; E78.5 Hyperlipidemia, unspecified; F41.9 Anxiety disorder, unspecified; J45.909 Unspecified asthma, uncomplicated; Z79.4 Long term (current) use of insulin; Z79.51 Long term (current) use of inhaled steroids
CPT/HCPCS: 36415; 71046; 80048; 80053; 82948; 84484; 85025; 85610; 85730; 93005; 94640; 96372; 99285; A9270; G0378; J1650; J1815

== ENCOUNTER 2022-11-10 13:21 | Emergency (ER) | payer OTHER, BC, SELFPAY ==
--- NOTE | ~2022-11-10 | CT_ITS ---
EXAMINATION: CT cervical spine wo con DATE: 11/10/2022 16:05 INDICATION: Head injury. TECHNIQUE: Computed tomography (CT) of the cervical spine was performed without intravenous contrast. Automated exposure control and iterative reconstruction technique were employed. The dose-length pro duct was 447.15 mGy-cm. COMPARISON: None FINDINGS: There is hypolordosis of cervical spine. Vertebral body heights are normal. There is mildly decreased disc height at C5-C6. The following disc levels are specifically discussed: C2-C3: There is no uncovertebral joint osteoarthritis. There is no facet joint osteoarthritis. There is no neural foraminal stenosis. There is no central canal stenosis. C3-C4: There is mild bilateral uncovertebral joint osteoarthritis. There is no facet joint osteoarthr itis. There is no neural foraminal stenosis. There is no central canal stenosis. C4-C5: There is no uncovertebral joint osteoarthritis. There is no facet joint osteoarthritis. There is no neural foraminal stenosis. There is no central canal stenosis. C5-C6: There is no uncovertebral joint osteoarthritis. There is no facet joint osteoarthritis. There is no neural foraminal stenosis. There is no central canal stenosis. C6-C7: There is no uncovertebral joint osteoarthritis. There is no facet joint osteoarthritis. There is no neural foraminal stenosis. There is no central canal stenosis. C7-T1: There is no uncovertebral joint osteoarthritis. There is mild bilateral facet joint osteoarthr itis. There is no neural foraminal stenosis. There is no central canal stenosis. IMPRESSION: 1. No fracture. 2. Mild cervical spondylosis. Reviewed, dictated and finalized at location A. [employer] CONSULTANT
--- NOTE | ~2022-11-10 | CT_ITS ---
EXAMINATION: CT brain wo con DATE: 11/10/2022 16:05 INDICATION: Head injury. Headache. TECHNIQUE: Computed tomography (CT) of the head was performed without intravenous contrast. The mA wa s adjusted according to patient size. Iterative reconstruction technique was employed. The dose-lengt h product was 605.33 mGy-cm. COMPARISON: None FINDINGS: There is no intracranial hemorrhage, acute infarction, or abnormal intracranial mass lesion . The ventricles are normal in size. There is mild mucosal thickening in the ethmoid sinuses. The mas toid air cells are normal. There are likely changes of ocular lens replacement surgeries. IMPRESSION: 1. Normal brain. Reviewed, dictated and finalized at location A. [employer]ISING CAMPAIGN MANAGER IMPRESSION: 1. Normal brain.
[2022-11-10 13:41] VITALS: BP 140/59; PULSE 77; RESP 18; TEMP 36.6; O2SAT 97
--- NOTE | 2022-11-10 16:16 | ED.GENADULT ---
HPI - General Adult General Chief complaint: Fall Stated complaint: headache Time Seen by Provider: 11/10/22 15:34 Source: RN notes reviewed History of Present Illness HPI narrative: Patient presents emergency department from home for head and neck pain. Patient states that last night she had gone to [facility] she states that there had been a hole in the ceiling and was direct dripping water onto the tile as she states that she do not see how large the area was in a walk-through and slipped states that she fell she hit her head on the side of the shelf and fell to the ground she states she did not have any loss of consciousness but since that time has had headache as well as neck pain states that she has had no vision changes no numbness or tingling in the extremities she denies any back pain chest pain shortness of breath abdominal pain or any extremity injuries states she has been able to get up and ambulate since the fall she states she took Tylenol earlier today Related Data Home Medications Medication Instructions Recorded Confirmed albuterol sulfate 2.5 mg/3 mL 2.5 mg inhalation QID PRN 01/23/22 01/23/22 (0.083 %) solution for nebulization Shortness of Breath albuterol sulfate 90 mcg/actuation 2 puff inhalation Q6H PRN Wheezing 01/23/22 01/23/22 aerosol inhaler alprazolam 0.5 mg tablet 0.5 mg PO TID PRN Anxiety 01/23/22 01/23/22 ezetimibe 10 mg tablet 10 mg PO QAM 01/23/22 01/23/22 fluticasone 500 mcg-salmeterol 50 2 inh inhalation QAM 01/23/22 01/23/22 mcg/dose blistr powdr for inhalation (Advair Diskus) hydralazine 50 mg tablet 50 mg PO TID 01/23/22 01/23/22 insulin aspart U-100 100 unit/mL 10 unit subcut TIDWM 01/23/22 01/23/22 (3 mL) subcutaneous pen (Novolog FlexPen U-100 Insulin aspart) insulin glargine 100 unit/mL (3 50 unit subcut HS 01/23/22 01/23/22 mL) subcutaneous pen (Basaglar KwikPen U-100 Insulin) losartan 100 1 tablet PO QAM 01/23/22 01/23/22 mg-hydrochlorothiazide 25 mg tablet nebivolol 10 mg tablet 10 mg PO QAM 01/23/22 01/23/22 rosuvastatin 20 mg tablet 20 mg PO EVERY OTHER DAY 01/23/22 01/23/22 tiotropium bromide 2.5 2 puff inhalation QAM 01/23/22 01/23/22 mcg/actuation mist for inhalation (Spiriva Respimat) venlafaxine 75 mg capsule,extended 75 mg PO QAM 01/23/22 01/23/22 release 24 hr Allergies Allergy/AdvReac Type Severity Reaction Status Date / Time hydrocodone AdvReac Nausea Verified 01/23/22 17:57 tramadol AdvReac Nausea Verified 01/23/22 17:57 Review of Systems Review of Systems: Gen.: Denies fevers or chills Eyes: Denies eye pain or visual change ENT: Denies facial pain Respiratory: Denies shortness of breath or cough CV: Denies chest pain GI: Denies abdominal pain nausea, emesis denies incontinence Musculoskeletal: Denies back pain or muscle pain reports neck pain Neuro: See HPI Skin: Denies rash Except as documented, all other systems reviewed and negative PMFSH Past Medical History Medical History Anxiety Asthma Diabetes mellitus Hyperlipidemia Hypertension Surgical History Surgical History H/O section Family History Family History Father Heart disease, Onset Age: 70 CHF (congestive heart failure) Hx of CABG DM type 2 (diabetes mellitus, type 2) Mother Heart disease, Onset Age: 70 Hx of CABG Parkinsons Dementia TIA (transient ischemic attack) Sibling Heart valve replaced Breast cancer Bladder cancer History of heart artery stent Social History Social History Smoking status: Never smoker Second hand tobacco smoke exposure: Yes Alcohol intake: current Drinks per week: 9 Substance use: never Substance use type: does not use Spiritual care concerns: No Exam Narrativ
[2022-11-10] MEDS: IBUPROFEN 600 MG TABLET PO (16:26)
[2022-11-10 16:30] VITALS: TEMP 36.6
== END 2022-11-10 16:34 | disposition home or self-care (01) ==
LOC: ANHED 16:20
PROVIDERS: Emergency Provider Emergency Medicine; PCP Internal Medicine
DX: S00.93XA Contusion of unspecified part of head, initial encounter (principal); S16.1XXA Strain of muscle, fascia and tendon at neck level, initial encounter; F41.9 Anxiety disorder, unspecified; J45.909 Unspecified asthma, uncomplicated; E11.9 Type 2 diabetes mellitus without complications; I10 Essential (primary) hypertension; E78.5 Hyperlipidemia, unspecified; Z79.4 Long term (current) use of insulin; W01.0XXA Fall on same level from slipping, tripping and stumbling without subsequent striking against object, initial encounter
CPT/HCPCS: 70450; 72125; 99284; A9270

== ENCOUNTER 2023-06-05 12:17 | Emergency (ER) | payer BC, SELFPAY ==
[2023-06-05 12:32] VITALS: BP 154/69; PULSE 60; RESP 18; TEMP 36.9; O2SAT 98
--- NOTE | 2023-06-05 13:19 | ED.SKABFB ---
HPI - Skin/Abscess/Foreign Bdy General Chief complaint: Skin/Abscess/Foreign Body Stated complaint: left knee skin irritation Time Seen by Provider: 06/05/23 13:04 Source: patient and RN notes reviewed Mode of arrival: ambulatory Limitations: no limitations History of Present Illness HPI narrative: Patient presents today complaining of a burn to her left knee. Patient put a hard ice pack on her knee yesterday and then fell asleep. States ice pack was on her knee for approximately 1-2 hours before she woke up and removed it. She went to bed last night then woke up with a blister to her knee along with a burn. States it itches, but she does not feel much pain at this time. She has not tried any [id number] treatment prior to arrival. She is concerned as she is diabetic and she has plans to go on vacation in 2 weeks. Related Data Home Medications Medication Instructions Recorded Confirmed albuterol sulfate 2.5 mg/3 mL 2.5 mg inhalation QID PRN 01/23/22 01/23/22 (0.083 %) solution for nebulization Shortness of Breath albuterol sulfate 90 mcg/actuation 2 puff inhalation Q6H PRN Wheezing 01/23/22 01/23/22 aerosol inhaler alprazolam 0.5 mg tablet 0.5 mg PO TID PRN Anxiety 01/23/22 01/23/22 ezetimibe 10 mg tablet 10 mg PO QAM 01/23/22 01/23/22 fluticasone 500 mcg-salmeterol 50 2 inh inhalation QAM 01/23/22 01/23/22 mcg/dose blistr powdr for inhalation (Advair Diskus) hydralazine 50 mg tablet 50 mg PO TID 01/23/22 01/23/22 insulin aspart U-100 100 unit/mL 10 unit subcut TIDWM 01/23/22 01/23/22 (3 mL) subcutaneous pen (Novolog FlexPen U-100 Insulin aspart) insulin glargine 100 unit/mL (3 50 unit subcut HS 01/23/22 01/23/22 mL) subcutaneous pen (Basaglar KwikPen U-100 Insulin) losartan 100 1 tablet PO QAM 01/23/22 01/23/22 mg-hydrochlorothiazide 25 mg tablet nebivolol 10 mg tablet 10 mg PO QAM 01/23/22 01/23/22 rosuvastatin 20 mg tablet 20 mg PO EVERY OTHER DAY 01/23/22 01/23/22 tiotropium bromide 2.5 2 puff inhalation QAM 01/23/22 01/23/22 mcg/actuation mist for inhalation (Spiriva Respimat) venlafaxine 75 mg capsule,extended 75 mg PO QAM 01/23/22 01/23/22 release 24 hr Allergies Allergy/AdvReac Type Severity Reaction Status Date / Time hydrocodone AdvReac Nausea Verified 06/05/23 13:18 tramadol AdvReac Nausea Verified 06/05/23 13:18 Review of Systems Review of Systems: CONSTITUTIONAL: Denies body aches, fever, chills, or sweats. EYES: Denies visual changes, redness, or discharge. ENT: Denies rhinorrhea, congestion, sore throat, or otalgia. CARDIOVASCULAR: Denies chest pain, palpitations, or edema. RESPIRATORY: Denies cough or dyspnea. GASTROINTESTINAL: Denies abdominal pain, nausea, vomiting, or diarrhea. GENITOURINARY: Denies dysuria or hematuria. SKIN: + left leg burn MUSCULOSKELETAL: Denies back pain, joint pain, or myalgia. NEUROLOGIC: Denies headache, numbness, tingling, or weakness. PSYCH: Denies depression or anxiety. [facility] Past Medical History Medical History Anxiety Asthma Diabetes mellitus Hyperlipidemia Hypertension Surgical History Surgical History H/O section Family History Family History Father Heart disease, Onset Age: 70 CHF (congestive heart failure) Hx of CABG DM type 2 (diabetes mellitus, type 2) Mother Heart disease, Onset Age: 70 Hx of CABG Parkinsons Dementia TIA (transient ischemic attack) Sibling Heart valve replaced Breast cancer Bladder cancer History of heart artery stent Social History Social History Smoking status: Never smoker Second hand tobacco smoke exposure: Yes Alcohol intake: current Drinks per week: 9 Substance use: never Substance use type: does n
[2023-06-05] MEDS: ACETAMINOPHEN 500 MG TABLET 1000 MG PO (13:38)
== END 2023-06-05 13:50 | disposition home or self-care (01) ==
PROVIDERS: Emergency Provider Nurse Practitioner; PCP Internal Medicine
DX: T24.202A Burn of second degree of unspecified site of left lower limb, except ankle and foot, initial encounter (principal); W93.8XXA Exposure to other excessive cold of man-made origin, initial encounter; E11.9 Type 2 diabetes mellitus without complications; E78.5 Hyperlipidemia, unspecified; I10 Essential (primary) hypertension; J45.909 Unspecified asthma, uncomplicated; Z79.4 Long term (current) use of insulin
CPT/HCPCS: 99213; A9270; G0463

== ENCOUNTER 2023-10-23 00:39 | Day surgery (SDC) | payer BC, SELFPAY ==
[2023-10-20 15:18] VITALS: BMI 40.1
--- NOTE | 2023-10-23 06:30 | ECG_ITS ---
Measurements Intervals [place] Rate: 79 P: SC: 0 QRS: 90 QRSD: 100 T: 17 QT: 349 QTc: 402 Interpretive Statements ATRIAL FIBRILLATION BORDERLINE ST-T WAVE ABNORMALITY- INFERIOR LEADS ABNORMAL ECG COMPARED TO ECG 01/23/2022 13:03:02 ATRIAL FIBRILLATION NOW PRESENT Electronically Signed On 10-23-2023 7:56:04 LUNG SPLITTER by Ronnie Butler D.O.
[2023-10-23 07:15] VITALS: BP 117/64; PULSE 77; RESP 18; TEMP 36.8; O2SAT 98; BMI 41.3
[2023-10-23 07:18] LABS: Hematocrit 36.9 % (37.0-47.0); Hemoglobin 12.3 g/dL (12.0-15.0); Mean Corpuscular HGB Conc 33.3 g/dl (32-36); Mean Corpuscular Hemoglobin 32.2 pg (26-34); Mean Corpuscular Volume 96.6 fl (80-100); Mean Platelet Volume 9.3 fl (7.4-10.4); Platelet Count Result 289 k/mm3 (150-375); Red Blood Count 3.82 M/mm3 (4.2-5.4); Red Cell Distribution Width 12.2 % (11.5-14.5); White Blood Count 9.1 K/mm3 (4.5-10.0)
[2023-10-23] MEDS: SODIUM CHLORIDE 0.9% IV 1,000 ML 30 ML IV CONT (07:20)
[2023-10-23] MEDS: APIXABAN 5 MG TABLET PO (07:20)
[2023-10-23 07:28] LABS: Anion Gap 8 mmol/L (8-16); Blood Urea Nitrogen 26 mg/dL (7-17); Calcium 9.2 mg/dL (8.4-10.2); Carbon Dioxide 27 mmol/L (22-30); Chloride 104 mmol/L (98-107); Estimated Glomerular Filt Rate > 60; Glucose 130 mg/dL (65-110); Magnesium 1.6 mg/dL (1.6-2.3); Sodium 139 mmol/L (137-145)
--- NOTE | 2023-10-23 07:49 | WPDANESEPPF ---
Anes - Initial Pre Proc Eval Procedure: Operation Date: 10/23/23 08:00 Proposed Procedures p Electrical Cardioversion - Lm Andrade MD Date/Time: 10/23/23 07:49 Surgeon: Lm Andrade MD Pre Op Diagnosis: a-fib Patient Data Age: 63 Gender: F Height: 1.5 m Weight: 93 kg Last Vital Signs Temp 36.8 C 10/23/23 07:15 Pulse 77 10/23/23 07:15 Resp 18 10/23/23 07:15 BP 117/64 10/23/23 07:15 Pulse Ox 98 10/23/23 07:15 O2 Del Method Room Air 10/23/23 07:15 Allergies Allergy/AdvReac Type Severity Reaction Status Date / Time hydrocodone AdvReac Nausea Verified 10/23/23 07:07 tramadol AdvReac Nausea Verified 10/23/23 07:07 Home Medications Medication Instructions Recorded Confirmed Type albuterol sulfate 2.5 mg/3 mL 2.5 mg inhalation QID PRN 01/23/22 10/20/23 History (0.083 %) solution for nebulization Shortness of Breath albuterol sulfate 90 mcg/actuation 2 puff inhalation Q6H PRN Wheezing 01/23/22 10/20/23 History aerosol inhaler alprazolam 0.5 mg tablet 0.5 mg PO TID PRN Anxiety 01/23/22 10/23/23 History ezetimibe 10 mg tablet 10 mg PO QAM 01/23/22 10/23/23 History fluticasone 500 mcg-salmeterol 50 2 inh inhalation QAM 01/23/22 10/23/23 History mcg/dose blistr powdr for inhalation (Advair Diskus) insulin aspart U-100 100 unit/mL 1 - 10 unit subcut TIDWM 01/23/22 10/23/23 History (3 mL) subcutaneous pen (Novolog FlexPen U-100 Insulin aspart) insulin glargine 100 unit/mL (3 46 unit subcut HS 01/23/22 10/23/23 History mL) subcutaneous pen (Basaglar KwikPen U-100 Insulin) losartan 100 1 tablet PO QAM 01/23/22 10/23/23 History mg-hydrochlorothiazide 25 mg tablet nebivolol 10 mg tablet 10 mg PO QAM 01/23/22 10/23/23 History rosuvastatin 20 mg tablet 20 mg PO DAILY 01/23/22 10/23/23 History tiotropium bromide 2.5 2 puff inhalation QAM 01/23/22 10/23/23 History mcg/actuation mist for inhalation (Spiriva Respimat) venlafaxine 75 mg capsule,extended 75 mg PO QAM 01/23/22 10/23/23 History release 24 hr ibuprofen 600 mg tablet 600 mg PO TID PRN pain #14 tabs 11/10/22 10/23/23 Rx apixaban 5 mg tablet (Eliquis) 5 mg PO BID 10/20/23 10/23/23 History cholecalciferol (vitamin D3) 25 25 mcg PO DAILY 10/20/23 10/23/23 History mcg (1,000 unit) capsule (Vitamin D3) [id number] 4 mg-folic acid 1 tablet PO DAILY 10/20/23 10/23/23 History 200 mcg-vit K 25 mcg-lutein tablet (Centrum Minis Women 50 Plus) omega-3 fatty acids 1 cap PO DAILY 10/20/23 10/23/23 History Laboratory Tests 10/23/23 07:01 WBC 9.1 K/mm3 (4.5-10.0) RBC 3.82 L M/mm3 (4.2-5.4) Hgb 12.3 g/dL (12.0-15.0) Hct 36.9 L % (37.0-47.0) MCV 96.6 fl (80-100) MCH 32.2 pg (26-34) MCHC 33.3 g/dl (32-36) RDW 12.2 % (11.5-14.5) Plt Count 289 k/mm3 (150-375) MPV 9.3 fl (7.4-10.4) Sodium 139 mmol/L (137-145) Potassium 4.0 mmol/L (3.4-5.0) Chloride 104 mmol/L (98-107) Carbon Dioxide 27 mmol/L (22-30) Anion Gap 8 mmol/L (8-16) BUN 26 H mg/dL (7-17) Creatinine 0.70 mg/dL (0.7-1.0) Estim Creat Clear Calc Not Reportable Estimated GFR > 60 (59 - ) Glucose 130 H mg/dL (65-110) Calcium 9.2 mg/dL (8.4-10.2) Magnesium 1.6 mg/dL (1.6-2.3) Patient hx anesthesia problems: none Family hx anesthesia problems: none Results Review: All pre-operative results and documents have been reviewed as part of the pre-operative evaluation. [facility] Past Medical History Medical History Anxiety Asthma Diabetes mellitus Hyperlipidemia Hypertension Surgical History Surgical History H/O section Family History Family History Father Heart disease, Onset Age: 70 CHF (congestive hea
--- NOTE | 2023-10-23 08:30 | ECG_ITS ---
Measurements Intervals [place] Rate: 60 P: 91 MI: 196 QRS: 89 QRSD: 96 T: 49 QT: 404 QTc: 405 Interpretive Statements SINUS RHYTHM WITH MARKED SINUS ARRHYTHMIA INCOMPLETE RIGHT BUNDLE BRANCH BLOCK LOW QRS VOLTAGE IN PRECORDIAL LEADS BORDERLINE T WAVE ABNORMALITY- INFERIOR LEADS BORDERLINE ECG COMPARED TO ECG 10/23/2023 07:02:21 SINUS RHYTHM NOW PRESENT SINUS ARRHYTHMIA NOW PRESENT Electronically Signed On 10-23-2023 9:04:49 BURRER HAND by Ronnie Butler D.O.
[2023-10-23 08:40] VITALS: BP 115/49; PULSE 68; RESP 12
[2023-10-23 08:45] VITALS: BP 116/56; PULSE 64; RESP 16
[2023-10-23 09:00] VITALS: BP 106/62; PULSE 60; RESP 12
--- NOTE | 2023-10-23 09:13 | WPDCARDPROC ---
Cardiac Cath Procedure Note Date of procedure:: 10/23/23 Performing physician:: Lm Andrade MD Indication:: atrial fibrillation Brief clinical history:: this is a 63-year-old woman with atrial fibrillation felt to be of several months duration. She has been anticoagulated and rate controlled an attempt at restoring sinus rhythm has been recommended Procedure Procedure performed:: . DC cardioversion Sedation/Medication given:: intravenous propofol per the Anesthesia Service, see their separately dictated no Estimated blood loss:: 0 Procedure note:: patient was brought to the cardiac catheterization lab postanesthesia area where she had peripheral IV access established and defibrillator patches placed in the AP position. Following establishment of good sedation she was counter shocked in a synchronized fashion with 200 joules x1 shock which restored sinus rhythm. Findings:: As above Conclusion:: successful uncomplicated DC cardioversion of atrial fib using 200 joules restoring sinus rhythm. Lm Andrade MD [facility]
[2023-10-23 09:15] VITALS: BP 101/86; PULSE 70; RESP 10; O2SAT 94
[2023-10-23 09:30] VITALS: BP 122/52; PULSE 71; RESP 18; O2SAT 95
--- NOTE | 2023-11-13 07:16 | PM.IMHP ---
H&P: HPI History of Present Illness Date/Time: 10/24/23: 07:16 Chief Complaint: Elective admission for outpatient cardioversion Narrative: This is a 63-year-old woman who has history of morbid obesity who has been seen in the outpatient setting because of the recent development of atrial fibrillation. She was felt to be in atrial fibrillation for several weeks at the time of consultation. She has been anticoagulated and rate controlled and is admitted this morning for an attempt at restoring sinus rhythm electrically. She has no active complaints this morning such as palpitations chest pain shortness of breath. Review of Systems Constitutional: Constitutional: Reports no additional constitutional complaints Eyes: Eyes: Reports no additional eye complaints ENT: Reports system reviewed and no additional complaints, except as documented Cardiovascular: Cardiovascular: Reports palpitations Respiratory: Respiratory: Reports dyspnea on exertion Gastrointestinal: Gastrointestinal: Reports no additional gastrointestinal complaints Genitourinary: Genitourinary: Reports no additional female genitourinary complaints Musculoskeletal: Musculoskeletal: Reports no additional musculoskeletal complaints Integumentary/Breasts: Skin/Breast: Reports system reviewed and no additional complaints, except as docu Neurologic: Reports system reviewed and no additional complaints, except as documented [facility] Past Medical History Medical History Anxiety Asthma Diabetes mellitus Hyperlipidemia Hypertension Surgical History Surgical History H/O section Family History Family History Father Heart disease, Onset Age: 70 CHF (congestive heart failure) Hx of CABG DM type 2 (diabetes mellitus, type 2) Mother Heart disease, Onset Age: 70 Hx of CABG Parkinsons Dementia TIA (transient ischemic attack) Sibling Heart valve replaced Breast cancer Bladder cancer History of heart artery stent Social History Social History Smoking status: Never smoker Second hand tobacco smoke exposure: Yes Alcohol intake: never Drinks per week: 9 Substance use: current Substance use type: marijuana Living arrangements: alone Gender identity (if verbalized by the patient): Female Spiritual care concerns: No Meds Home Medications and Allergies Home Medications Medication Instructions Recorded Confirmed Type albuterol sulfate 2.5 mg/3 mL 2.5 mg inhalation QID PRN 01/23/22 10/20/23 History (0.083 %) solution for nebulization Shortness of Breath albuterol sulfate 90 mcg/actuation 2 puff inhalation Q6H PRN Wheezing 01/23/22 10/20/23 History aerosol inhaler alprazolam 0.5 mg tablet 0.5 mg PO TID PRN Anxiety 01/23/22 10/23/23 History ezetimibe 10 mg tablet 10 mg PO QAM 01/23/22 10/23/23 History fluticasone 500 mcg-salmeterol 50 2 inh inhalation QAM 01/23/22 10/23/23 History mcg/dose blistr powdr for inhalation (Advair Diskus) insulin aspart U-100 100 unit/mL 1 - 10 unit subcut TIDWM 01/23/22 10/23/23 History (3 mL) subcutaneous pen (Novolog FlexPen U-100 Insulin aspart) insulin glargine 100 unit/mL (3 46 unit subcut HS 01/23/22 10/23/23 History mL) subcutaneous pen (Basaglar KwikPen U-100 Insulin) losartan 100 1 tablet PO QAM 01/23/22 10/23/23 History mg-hydrochlorothiazide 25 mg tablet nebivolol 10 mg tablet 10 mg PO QAM 01/23/22 10/23/23 History rosuvastatin 20 mg tablet 20 mg PO DAILY 01/23/22 10/23/23 History tiotropium bromide 2.5 2 puff inhalation QAM 01/23/22 10/23/23 History mcg/actuation mist for inhalation (Spiriva Respimat) venlafaxine 75 mg capsule,extended 75 mg PO QAM 01/23/22 10/23/23 History release 24 hr ibuprofen 600 mg tablet 600 mg PO TID
== END 2023-10-23 09:55 | disposition home or self-care (01) ==
PROVIDERS: PCP Internal Medicine; Visit Provider Specialist
PROC: 5A2204Z Restoration of Cardiac Rhythm, Single (ICD-10-PCS; principal; 2023-10-23 08:00)
DX: I48.91 Unspecified atrial fibrillation (principal); I10 Essential (primary) hypertension; E78.5 Hyperlipidemia, unspecified; F41.9 Anxiety disorder, unspecified; E11.9 Type 2 diabetes mellitus without complications; J45.909 Unspecified asthma, uncomplicated; E66.01 Morbid (severe) obesity due to excess calories; Z68.41 Body mass index [BMI] 40.0-44.9, adult; Z79.51 Long term (current) use of inhaled steroids; Z79.4 Long term (current) use of insulin; Z79.01 Long term (current) use of anticoagulants; Z82.49 Family history of ischemic heart disease and other diseases of the circulatory system; Z80.52 Family history of malignant neoplasm of bladder; Z80.3 Family history of malignant neoplasm of breast
CPT/HCPCS: 36415; 80048; 83735; 85027; 92960; A9270; J2704; J7030

== ENCOUNTER 2024-02-02 00:39 | Day surgery (SDC) | payer BC, SELFPAY ==
[2024-02-01 14:25] VITALS: BMI 41.1
--- NOTE | 2024-02-02 07:07 | WPDANESEPPF ---
Anes - Initial Pre Proc Eval Procedure: Operation Date: 02/02/24 09:00 Proposed Procedures p Electrical Cardioversion - Lm Andrade MD Date/Time: 02/02/24 07:07 Surgeon: Lm Andrade MD Pre Op Diagnosis: a-fib Patient Data Age: 63 Gender: F Height: 1.5 m Weight: 92.5 kg Allergies Allergy/AdvReac Type Severity Reaction Status Date / Time hydrocodone AdvReac Nausea Verified 02/02/24 07:58 tramadol AdvReac Nausea Verified 02/02/24 07:58 Home Medications Medication Instructions Recorded Confirmed Type albuterol sulfate 2.5 mg/3 mL 2.5 mg inhalation QID PRN 01/23/22 02/02/24 History (0.083 %) solution for nebulization Shortness of Breath albuterol sulfate 90 mcg/actuation 2 puff inhalation Q6H PRN Wheezing 01/23/22 02/02/24 History aerosol inhaler alprazolam 0.5 mg tablet 0.5 mg PO TID PRN Anxiety 01/23/22 02/02/24 History ezetimibe 10 mg tablet 10 mg PO QAM 01/23/22 02/02/24 History fluticasone 500 mcg-salmeterol 50 2 inh inhalation QAM 01/23/22 02/02/24 History mcg/dose blistr powdr for inhalation (Advair Diskus) insulin aspart U-100 100 unit/mL 1 - 10 unit subcut TIDWM 01/23/22 02/02/24 History (3 mL) subcutaneous pen (Novolog FlexPen U-100 Insulin aspart) insulin glargine 100 unit/mL (3 46 unit subcut HS 01/23/22 02/02/24 History mL) subcutaneous pen (Basaglar KwikPen U-100 Insulin) losartan 100 1 tablet PO QAM 01/23/22 02/02/24 History mg-hydrochlorothiazide 25 mg tablet nebivolol 10 mg tablet 10 mg PO QAM 01/23/22 02/02/24 History rosuvastatin 20 mg tablet 20 mg PO DAILY 01/23/22 02/02/24 History tiotropium bromide 2.5 2 puff inhalation QAM 01/23/22 02/02/24 History mcg/actuation mist for inhalation (Spiriva Respimat) venlafaxine 75 mg capsule,extended 75 mg PO QAM 01/23/22 02/02/24 History release 24 hr apixaban 5 mg tablet (Eliquis) 5 mg PO BID 10/20/23 02/02/24 History lyngngjv-lsg-gxvz 4 mg-folic acid 1 tablet PO DAILY 10/20/23 02/02/24 History 200 mcg-vit K 25 mcg-lutein tablet (Centrum Minis Women 50 Plus) omega-3 fatty acids 1 cap PO DAILY 10/20/23 02/02/24 History fexofenadine 60 mg tablet (Allergy 60 mg PO DAILY 02/01/24 02/02/24 History Relief (fexofenadine)) flecainide 50 mg tablet 50 mg PO BID 02/01/24 02/02/24 History glucagon 3 mg/actuation nasal 3 mg intranasal PRN PRN 02/01/24 02/02/24 History spray (Baqsimi) Hypoglycemia Patient hx anesthesia problems: none Family hx anesthesia problems: none Results Review: All pre-operative results and documents have been reviewed as part of the pre-operative evaluation. [facility] Past Medical History Medical History (Updated 02/02/24 @ 07:07 by Dustin Sandoval DO) Anxiety Asthma Atrial fibrillation Diabetes mellitus Hyperlipidemia Hypertension ROSALVA (obstructive sleep apnea) Surgical History Surgical History H/O section Family History Family History Father Heart disease, Onset Age: 70 CHF (congestive heart failure) Hx of CABG DM type 2 (diabetes mellitus, type 2) Mother Heart disease, Onset Age: 70 Hx of CABG Parkinsons Dementia TIA (transient ischemic attack) Sibling Heart valve replaced Breast cancer Bladder cancer History of heart artery stent Social History Social History Smoking status: Never smoker Second hand tobacco smoke exposure: No Alcohol intake: never Drinks per week: 9 Substance use: never Substance use type: does not use Living arrangements: with family Gender identity (if verbalized by the patient): Female Spiritual care concerns: No Anes - Eval Final PreProcedure Day of Procedure 02/02/24 07:07 Patient weight: morbidly obese Heart: regular rate and rhythm Lungs: clear to auscultation and normal air movement Airwa
--- NOTE | 2024-02-02 07:30 | ECG_ITS ---
SEE SCANNED COPY FOR CONFIRMED REPORT MTDD
[2024-02-02 08:10] VITALS: BP 113/64; PULSE 68; RESP 16; TEMP 36.4; O2SAT 96
[2024-02-02 08:24] LABS: Anion Gap 6 mmol/L (4-12); Blood Urea Nitrogen 30 mg/dL (7-17); Calcium 9.2 mg/dL (8.4-10.2); Carbon Dioxide 30 mmol/L (22-30); Chloride 101 mmol/L (98-107); Estimated Glomerular Filt Rate > 60; Glucose 227 mg/dL (65-110); Magnesium 1.7 mg/dL (1.6-2.3); Potassium 3.6 mmol/L (3.4-5.0); Sodium 137 mmol/L (137-145)
--- NOTE | 2024-02-02 09:00 | ECG_ITS ---
SEE SCANNED COPY FOR CONFIRMED REPORT MTDD
[2024-02-02 09:55] VITALS: BP 116/58; PULSE 61; RESP 16; O2SAT 96
[2024-02-02 10:04] VITALS: BP 115/57; PULSE 60; RESP 16; O2SAT 95
[2024-02-02 10:21] VITALS: BP 121/64; PULSE 65; RESP 16; O2SAT 98
[2024-02-02 10:30] VITALS: BP 127/51; PULSE 62; RESP 16; O2SAT 97
[2024-02-02 10:45] VITALS: BP 140/70; PULSE 63; RESP 16; O2SAT 97
--- NOTE | 2024-02-29 07:32 | P.PCNCC_ITS ---
Cardiac Cath Procedure Note Date of procedure:: 02/02/24 Performing physician:: Lm Andrade MD Indication:: Recurrent symptomatic atrial fibrillation Brief clinical history:: This is a 63-year-old woman with a history of atrial fibrillation which appears to be mildly symptomatic with fatigue and lack of energy. She was cardioverted electrically in October of this year. She has recurrent atrial fibrillation and has now been placed on medical therapy with flecainide. Attempt at restoring sinus rhythm again has been recommended for today Procedure Procedure performed:: DC cardioversion Sedation/Medication given:: Sedation per Anesthesia Service Estimated blood loss:: None Procedure note:: Patient was brought to the cardiac catheterization lab postanesthesia room where she was in the postabsorptive state placed in the supine position with defibrillator patches in the AP position. She was sedated by the anesthesia service. Please see their separately dictated note for those details. After sedation was established she was counter shocked with 200 joules in a synchronized fashion with no change in her rhythm. She was then counter shocked at 360 joules in a synchronized fashion with christianity of sinus rhythm. Findings:: As above Conclusion:: Successful uncomplicated DC cardioversion terminating AFib, restoring sinus rhythm requiring a synchronized shock of 360 joule Lm Andrade MD [facility]
== END 2024-02-02 11:00 | disposition home or self-care (01) ==
PROVIDERS: PCP Internal Medicine; Visit Provider Specialist
PROC: 5A2204Z Restoration of Cardiac Rhythm, Single (ICD-10-PCS; principal; 2024-02-02 09:00)
DX: I48.91 Unspecified atrial fibrillation (principal); I10 Essential (primary) hypertension; E11.9 Type 2 diabetes mellitus without complications; E78.5 Hyperlipidemia, unspecified; G47.33 Obstructive sleep apnea (adult) (pediatric); F41.9 Anxiety disorder, unspecified; J45.909 Unspecified asthma, uncomplicated; Z79.51 Long term (current) use of inhaled steroids; Z79.4 Long term (current) use of insulin; E66.01 Morbid (severe) obesity due to excess calories; Z68.41 Body mass index [BMI] 40.0-44.9, adult
CPT/HCPCS: 36415; 80048; 83735; 92960; J2704; J7030

== ENCOUNTER 2025-02-14 | Day surgery (SDC) | payer MEDICARE, SELFPAY ==
[2025-02-13 15:31] VITALS: BMI 38.5
--- OUTSIDE RECORDS SUMMARY | 2025-02-14 00:02 | XMS_ITS | Encounter Summary ---
Author Organization [facility] Address [address] [place] [address] Phone Care Team Providers Care Director Hedis Name Role Phone Corey Arroyo MD Primary Care Provider + Alfonso Russell MD Primary Care Provider [phone] Cassandra Siddiqi RN Unavailable Medina vailable Alfonso Russell MD Primary Care Provider [phone] Encounter Details Date Type Department Care Team (Latest Contact Info) Description 09/01/2017 Orders Only [facility] CONVERSION Scanning, Provider Social History Tobacco Use Types Packs/Day Years Used Date Smoking Tobacco: Never Smokeless Tobacco: Never Comments Unknown Sex and Gender Information Value Date Recorded Sex Assigned at Not on file 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 Gender Identity Female 07/18/2018 7:42 AM CDT Sexual Orientation Not on file documented as of this encounter Plan of Treatment Scheduled Procedures Name Priority Associated Diagnoses Date/Ti me COLONOSCOPY Open Access Encounter for screening colonoscopy COLONOSCOPY Colon cancer screening COLONOSCOPY Encounter for screening colonoscopy documented as of this encounter Procedures Procedure Name Priority Date/Time Associated Diagnosis Comments PULMONARY FUNCTION TEST (PFT) 09/01/2017 9:58 AM TROLLEY COACH DRIVER documented in this encounter Results * PULMONARY FUNCTION TEST (PFT) (09/01/2017 9:58 AM TROLLEY COACH DRIVER) Anatomical Region Laterality Modality PFT us Provider Scanning PFT ORDERABLES Final Result documented in this encounter Visit Diagnoses Not on filedocumented in this encounter Additional Health Concerns Infection Onset Date Last Indicated Resolved Time Rhino/Enterovirus 09/22/2021 09/22/2021 09/29/2021 3:06 AM TROLLEY COACH DRIVER documented as of this encounter Care Teams Director Hedis Relationship Specialty Start Date End Date Corey Arroyo MD [address] [address] PCP - General 12/30/16 07/17/18 Alfonso Russell MD [address] [address] PCP - General Internal Medicine 07/18/18 07/10/23 Alfonso Russell MD [address] [address] PCP - General Internal Medicine 07/11/23 Cassandra Siddiqi, RN Registered Nurse Pulmonary Disease 09/13/22 documented as of this encounter
--- OUTSIDE RECORDS SUMMARY | 2025-02-14 00:02 | XMS_ITS | Encounter Summary ---
Author Organization [facility] Address [address] [place] [address] Phone Care Team Providers Care Network Operations Technician Name Role Phone Corey Arroyo MD Primary Care Provider + Alfonso Russell MD Primary Care Provider [phone] Cassandra Siddiqi RN Unavailable Medina vailable Alfonso Russell MD Primary Care Provider [phone] Encounter Details Date Type Department Care Team (Latest Contact Info) Description 01/22/2018 Orders Only [facility] CONVERSION Scanning, Provider Social History Tobacco Use Types Packs/Day Years Used Date Smoking Tobacco: Never Smokeless Tobacco: Never Comments Unknown Sex and Gender Information Value Date Recorded Sex Assigned at Not on file 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 Gender Identity Female 07/18/2018 7:42 AM CDT Sexual Orientation Not on file documented as of this encounter Plan of Treatment Scheduled Procedures Name Priority Associated Diagnoses Date/Ti me COLONOSCOPY Open Access Encounter for screening colonoscopy COLONOSCOPY Colon cancer screening COLONOSCOPY Encounter for screening colonoscopy documented as of this encounter Procedures Procedure Name Priority Date/Time Associated Diagnosis Comments PULMONARY FUNCTION TEST (PFT) 01/22/2018 9:10 AM CDT documented in this encounter Results * PULMONARY FUNCTION TEST (PFT) (01/22/2018 9:10 AM CDT) Anatomical Region Laterality Modality PFT Provider Scanning PFT ORDERABLES Final Result documented in this encounter Visit Diagnoses Not on filedocumented in this encounter Additional Health Concerns Infection Onset Date Last Indicated Resolved Time Rhino/Enterovirus 09/22/2021 09/22/2021 09/29/2021 3:06 AM TAX COLLECTION COORDINATOR documented as of this encounter Care Teams Network Operations Technician Relationship Specialty Start Date End Date Corey Arroyo MD [address] [address] PCP - General 12/30/16 07/17/18 Alfonso Russell MD [address] [address] PCP - General Internal Medicine 07/18/18 07/10/23 Alfonso Russell MD [address] [address] PCP - General Internal Medicine 07/11/23 Cassandra Siddiqi, RN Registered Nurse Pulmonary Disease 09/13/22 documented as of this encounter
--- OUTSIDE RECORDS SUMMARY | 2025-02-14 00:03 | XMS_ITS | Clinical Summary ---
Author Organization [facility] Address [address] [place] [address] Care Team Providers Care Collar Stay Fuser Tender Name Role Phone Cassandra Siddiqi RN Unavailable Medina Alfonso Faria MD Primary Care Provider [phone] Allergies No known active allergies Medications glucagon (glucagon) 1 mg kit inject (1MG) by intravenous route once 1 kit 3 09/28/20 15 Active ezetimibe (ZETIA) 10 mg tablet Take 1 tablet (10 mg total) by mouth daily Active ACCU-CHEK ALEXANDR PLUS METER misc TESTS 4 TIMES A DAY 3 10/23/19 19 Active multivitamin tablet daily Active fexofenadine (EDIL) 60 mg tablet TAKE 1 TABLET BY MOUTH EVERY 12 HOURS 60 tablet 3 01/17/20 19 Active inhalational spacing device ([facility]) spacer 1 Doses/Fill continuously as needed (To be used with inhaler for administration) 1 each 3 02/23/20 19 Active ACCU-CHEK ALEXANDR PLUS TEST STRP strip 09/09/20 19 Active BASAGLAR KWIKPEN U-100 INSULIN 100 unit/mL (3 mL) insulin pen 50 Units daily 09/19/20 19 Active losartan-hydroc hlorothiazide (HYZAAR) 100-25 mg per tablet 11/04/19 20 Active rosuvastatin (CRESTOR) 20 mg tablet Take 1 tablet (20 mg total) by mouth daily Active Bystolic 10 mg tablet Take 1 tablet (10 mg total) by mouth daily 11/18/19 21 Active NovoLOG 100 unit/mL (3 mL) pen for injection Per pump 04/14/20 21 Active FreeStyle Tuan 3 Sensor device APPLY 1 DEVICE TO SKIN EVERY TWO WEEKS 09/04/20 23 Active fish oil-dha-epa 1,200-144-216 mg capsule Take by mouth Activ e BD Insulin Syringe Ultra-Fine 0.3 mL 31 gauge x 02/14 syringe 12/04/19 24 Active flecainide (TAMBOCOR) 50 mg tabletIndicatio ns:Persistent atrial fibrillation (HCC) Take 1 tablet (50 mg total) by mouth 2 (two) times a day 180 tablet 3 12/26/19 24 Active venlafaxine XR (EFFEXOR-XR) 75 mg 24 hr capsule TAKE 1 CAPSULE BY MOUTH EVERY DAY 90 capsule 3 02/14/20 24 Active fluticasone propion-salmete roL (Wixela Inhub) 500-50 mcg/dose diskus inhaler Inhale 1 puff 2 (two) times a day Rinse mouth with water after use. Do not swallow. 3 each 3 04/15/20 24 Active levalbuterol (XOPENEX HFA) 45 mcg/actuation inhaler Inhale 2 puffs 4 (four) times a day as needed for wheezing or shortness of breath 15 g 5 06/19/20 24 2024 Active Additional Information Patient not taking.Reported on 01/22/2025 Accu-Chek Softclix Lancets lancets USE 1 LANCET DIRECTED TO TEST 3 TIMES DAILY 07/02/20 24 Active apixaban (Eliquis) 5 mg tablet TAKE 1 TABLET BY MOUTH TWICE A DAY 180 tablet 2 10/08/19 25 Active albuterol HFA (PROVENTIL HFA,VENTOLIN HFA,PROAIR HFA) 90 mcg/actuation inhaler Inhale 2 puffs every 6 (six) hours as needed for wheezing 20.1 each 3 10/16/19 25 Active ondansetron (ZOFRAN) 4 mg tablet Take 1 tablet (4 mg total) by mouth every 8 (eight) hours as needed for nausea or vomiting 20 tablet 12/06/19 25 Active Additional Information Patient not taking.Reported on 01/22/2025 ALPRAZolam (XANAX) 0.5 mg tablet TAKE 1 TABLET BY MOUTH 3 TIMES A DAY NEEDED FOR ANXIETY. 60 tablet 02/04/20 25 Active ALPRAZolam (XANAX) 0.5 mg tablet TAKE 1 TABLET (0.5 MG TOTAL) BY MOUTH 3 TIMES A DAY NEEDED FOR ANXIETY 60 tablet 01/09/20 25 2024 Discontinued Active Problems Problem Noted Date Diagnosed Date Anxiety 10/28/2024 Assessment & Plan (10/28/2024 10:14 AM MAT ROLLER): Continue Xanax PRN (use, safety, s/e reviewed) Encounter for screening colonoscopy 01/02/2024 Assessment & Plan (10/28/2024 10:13 AM MAT ROLLER): Cologuard referral Persistent atrial fibrillation 09/21/2023 Allergic rhinitis 12/22/2022 Assessment & Plan (12/22/2022 1:28 PM CDT): Will trial montelukast daily to help possible reduce antihistamine use for HTN May also gain some benefit with improved asthma control Vocal cord dysfunction 09/07/2017 Osteoarthritis of both knees 04/28/2017 Assessment & Plan (04/28/2017 4:35 PM CDT): Try taking H2 flo or PPI with ibuprofen if needed. Other NSAIDs she cannot tolerate. Getting cortisone injection prior to leaving for [facility]. ROSALVA (obstructive sleep apnea) 03/24/2016 Overview (01/06/2017): ROSALVA on CPAP Assessment & Plan (10/28/2024 10:15 AM MAT ROLLER): Follows with Pulmonary, in-lab SS pending Assessment & Plan (04/28/2017 4:34 PM CDT): Continue CPAP Essential hypertension 03/24/2016 Overview (01/06/2017): Essential hypertension Assessment & Plan (10/28/2024 10:23 AM MAT ROLLER): BP elevated, is seeing Cardiology next month and will defer to them for further adjustment Goal <130/80 Is on losartan/HCTZ 100/25mg daily and Bystolic 10mg daily Assessment & Plan (12/22/2022 1:25 PM CDT): Continue current meds Assessment & Plan (04/28/2017 4:09 PM CDT): Continue current regimen. Recently had HCTZ added, better. Moderate persistent asthma without complication 03/24/2016 Overview (01/06/2017): Mild intermittent asthma without complication Assessment & Plan (12/22/2022 1:28 PM CDT): Currently on prednisone taper per Pulmonary Is using albuterol PRN Is on advair and spiriva Follows with Dr. Candelaria Assessment & Plan (04/28/2017 4:04 PM CDT): Continue f/u with Dr. Candelaria at [facility]. Refilled albuterol inhaler. Morbid obesity 03/24/2016 Overview (01/06/2017): Morbid obesity, unspecified obesity type Assessment & Plan (04/28/2017 4:10 PM CDT): Had good response to Collect. Type 1 diabetes mellitus 03/24/2016 Overview (01/06/2017): Type 1 diabetes mellitus with hyperglycemia, with long-term current use of insulin Assessment & Plan (10/28/2024 10:15 AM MAT ROLLER): Follows with Dr. Lee-ELAINA Assessment & Plan (04/28/2017 4:36 PM CDT): Excellent A1c control, 6.3-6.5%. Sees Jesus regularly. Sees camila regularly. Unremarkable plantar foot monofilament exam. She will investigate whether she needs written prescriptions for meds prior to going to [facility]. Hyperlipidemia 03/24/2016 Overview (01/06/2017): Other hyperlipidemia Assessment & Plan (12/22/2022 1:25 PM CDT): TC 129 today Is on crestor 20mg and zetia 10mg Assessment & Plan (04/28/2017 4:36 PM CDT): Atorvastatin 40mg caused bad muscle pain. Much better off this. Feels she was on Crestor many years ago, not sure why she switched. Has not tried Livalo. Will investigate these options upon returning from [facility]. Resolved Problems Problem Noted Date Diagnosed Date Resolved Date Palpitations 08/29/2023 10/28/2024 Other chest pain 02/08/2022 12/22/2022 Effusion of knee 05/08/2017 12/22/2022 BMI 38.0-38.9,adult 04/28/2017 12/23/19 Assessment & Plan (04/28/2017 3:41 PM CDT): BMI Follow-up includes: bmi done today . Annual physical exam 04/28/2017 023 Assessment & Plan (04/28/2017 4:37 PM CDT): Colon cancer screening: Has deferred repeatedly in past due to cost. She knows the importance of getting this done based on previous conversations. Breast cancer screening: Per weight and balance control agent. Cervical cancer screening: Per weight and balance control agent. Vaccines: PNA 2006. Viral sinusitis 11/02/2016 12/22/2022 Dysphonia 08/30/2016 12/22/2022 Disorder of lung 01/14/2015 12/22/2022 Pain of hand 11/04/2014 12/22/2022 Acquired trigger finger 03/08/201210/03 Shortness of breath 12/23/19 Encounters Date Type Department Care Team Description 01/24/2025 Telephone [facility] Cardiology [address] [facility] [address]th [place] [address] [place] [address] Concha Chatman 01/22/2025 11:30 AM CDT Office Visit [facility] Cardiology [address] [place] [address] Latoya Zambrano NP Encounter for monitoring flecainide therapy (Primary Dx); ROSALVA (obstructive sleep apnea); Essential hypertension; Morbid obesity (HCC); Other hyperlipidemia; Persistent atrial fibrillation (HCC) 01/22/2025 Telephone [facility] Cardiology [address] [place] [address] Carin Lebron MD 12/27/2024 Orders Only [facility] [address] [facility] [place] [address] Alfonso Russell MD from Last 3 Months Immunizations Immunization Administration Dates Next Due Influenza, Quadrivalent, Rec ombinant, Egg Free, Preservative Free, Intramuscular 07/28/2020 Influenza, Quadrivalent, Spl it, Preservative Free, Intramuscular 07/11/2023 Pfizer SARS-CoV-2 Monovalent Vaccination (12+ Yrs) PURPLE 02/15/2022,07/30/2021,12/18/2020,11/27 Pneumococcal Polysaccharide PPV23 03/25/2015 Surgical History Surgery Date Site/Laterality Comments SECTION CARPAL TUNNEL RELEASE FLUORO GUIDED INJECTION HIP RIGHT 08/23/2024 Right Medical History Medical History Date Comments Asthma Asthma; Comments : [facility] 03/24/2016 - Type 1 diabetes mellitus (HCC) D iabetes type 1; Comments: [facility] 03/24/2016 - Hyperlipidemia Hypertension Acquired trigger finger 03/08/2012 Sleep apnea Family History Medical History Relation Name Comments Cancer Brother Bladder Family history of malignant neoplasm - (Added by TW Conv) Diabetes Father Eladio Raines Family history of diabetes mellitus - (Added by TW Conv) Arthritis Mother Randa Banks Family histor y of arthritis - (Added by TW Conv) Hypertension Mother Randa Banks Family histor y of hypertension - (Added by TW Conv) Breast cancer Other Family history of Cancer, breast; Diabetes Sister Family history of diabetes mellitus - (Added by TW Conv) Relation Name Status Comments Brother Bladder Father Eladio Raines Mother Randa Banks Other Sister Social History Tobacco Use Types Packs/Day Years Used Date Smoking Tobacco: Never Smokeless Tobacco: Never Tobacco Cessation:Counseling Given: Not Answered PHQ-2 Answer Date Recorded PHQ-2 Total Score (If total score is 3 or more points, staff should administer the PHQ-9) 0 01/01/2024 Comments Unknown Sex and Gender Information Value Date Recorded Sex Assigned at Not on file Legal Sex Female 6:25 PM MAT ROLLER Gender Identity Female 07/18/2018 7:42 AM CDT Sexual Orientation Not on file Obstetrics History Last Filed Vital Signs Vital Sign Reading Time Taken Comments Blood Pressure 110/62 01/22/2025 11:44 AM CDT Pulse 93 01/22/2025 11:44 AM CDT Temperature 36.6 C (97.8 F) 10/16/2024 8:03 AM MAT ROLLER Respiratory Rate 18 10/16/2024 8:03 AM MAT ROLLER Oxygen Saturation 97% 01/22/2025 11:44 AM CDT Inhaled Oxygen Concentration - - Weight 91.2 kg (201 lb) 01/22/2025 11:44 AM CDT Height 149.9 cm (4' 11 ) 01/22/2025 11:44 AM CDT Body Mass Index 40.6 01/22/2025 11:44 AM CDT Plan of Treatment Scheduled Procedures Name Priority Associated Diagnoses Date/Ti me COLONOSCOPY Open Access Encounter for screening colonoscopy COLONOSCOPY Colon cancer screening COLONOSCOPY Encounter for screening colonoscopy Health Maintenance Due Date Last Done Comments Albumin Creatinine Ratio, Urine 1959 Breast Cancer Screening-Mammogram 1959 Cervical Cancer Screening 1959 Colon Cancer Screening-Colonoscopy 1959 Hemoglobin A1C 1959 Hepatitis C Screening 1959 TSH Level 1959 Dilated Eye Exam 1969 DTaP/Tdap/Td Vaccine (1 - Tdap) 1970 Hepatitis B Screening 1977 Zoster Vaccine (1 of 2) 2009 Pneumococcal vaccine 65+ (2 of 2 - PCV) 03/25/2016 03/25/2015 Foot Exam 04/28/2018 04/28/2017 Osteoporosis Screening-Bone Density Scan 07/17/2020 07/17/2018 Well Visit 65+ 2024 05/12/2021, 04/28/2017 Covid-19 Vaccine (5 - 2023-2 5 season) 2024 02/15/2022, 07/30/2021, 12/18/2020, Additional history exists Lipid Panel 11/29/2024 11/30/2023, 032 11/2022, 03/24/2016 eGFR 12/25/2024 12/26/2023 Depression Screening 01/01/2025 01/02/2024 Fall Risk Assessment 01/01/2025 01/02/2024, 12/26/19 24 Influenza Vaccine (Season Ended) 2025 07/11/20 23, 07/28/2020 Colon Cancer Screening-DNA Stool Discontinued 11/05/19 25 Colon Cancer Screening-FIT Discontinued 11/05/2024 Procedures Procedure Name Priority Date/Time Associated Diagnosis Comments ECG 12-LEAD Routine 01/22/2025 11:52 AM CDT Encounter for monitoring flecainide therapy STOOL DNA COLOGUARD Routine 11/05/2024 11:45 AM MAT ROLLER Encounter for screening colonoscopy EGFR Routine 12/26/2023 11:48 AM CDT Persistent atrial fibrillation (HCC) POCT LIPID PANEL Routine 11/30/2023 10:1 1 AM MAT ROLLER Lipid screening DEXA AXIAL SKELETON BONE DENSITY 1 OR MORE SITES Schedule Routine, Read Routine (OP Routine) 07/17/2018 10:10 AM CDT Postmenopausal from Last 3 Months or Most Recently Relevant to Health Maintenance Results * ECG 12 lead (01/22/2025 11:52 AM CDT) Latoya Zambrano NP ECG ORDERABLES Final Result * Stool DNA - Cologuard (11/05/2024 11:45 AM MAT ROLLER) Stool DNA - Cologuard Negative Negative [facility] (CLIA #:[id number]) Comment: NEGATIVE TEST RESULT. A negative Cologuard result indicates a low likelihood that a colorectal cancer (CRC) or advanced adenoma (adenomatous polyps with more advanced pre-malignant features) is present. The chance that a person with a negative Cologuard test has a colorectal cancer is less than 1 in 1500 (negative predictive value >99.9%) or has an advanced adenoma is less than 5.3% (negative predictive value 94.7%). These data are based on a prospective cross-sectional study of 10,000 individuals at average risk for colorectal cancer who were screened with both Cologuard and colonoscopy. (Ally Zhu al, N Engl J Med 2014;370(14):4712-2196) The normal value (reference range) for this assay is negative. COLOGUARD RE-SCREENING RECOMMENDATION: Periodic colorectal cancer screening is an important part of preventive healthcare for asymptomatic individuals at average risk for colorectal cancer. Following a negative Cologuard result, the [place] [employer] Society and U.S. Multi-Society Task Force screening guidelines recommend a Cologuard re-screening interval of 3 years. References: [place] [employer] Guideline for Colorectal Cancer Screening: https://www.cancer.org/cancer/fxiwp-vnhpei-rydfgc/ynowthyje-ggchghzgh-drftkja/ac s-rec ommendations.html.; Van DK, Chava MORROW, Bobby FreyK, Colorectal Cancer Screening: Recommendations for Physicians and Patients from the U.S. Multi-Society Task Force on Colorectal Cancer Screening , Am J Gastroenterology 2017; 112:6939-1226. TEST DESCRIPTION: Composite algorithmic analysis of stool DNA-biomarkers with hemoglobin immunoassay. Quantitative values of individual biomarkers are not reportable and are not associated with individual biomarker result reference ranges. Cologuard is intended for colorectal cancer screening of adults of either sex, 45 years or older, who are at average-risk for colorectal cancer (CRC). Cologuard has been approved for use by the U.S. FDA. The performance of Cologuard was established in a cross sectional study of average-risk adults aged 50-84. Cologuard performance in patients ages 45 to 49 years was estimated by sub-group analysis of near-age groups. Colonoscopies performed for a positive result may find as the most clinically significant lesion: colorectal cancer [4.0%], advanced adenoma (including sessile serrated polyps greater than or equal to 1cm diameter) [20%] or non- advanced adenoma [31%]; or no colorectal neoplasia [45%]. These estimates are derived from a prospective cross-sectional screening study of 10,000 individuals at average risk for colorectal cancer who were screened with both Cologuard and colonoscopy. (Ally Henry, N Engl J Med 2014;370(14):1496-1915.) Cologuard may produce a false negative or false positive result (no colorectal cancer or precancerous polyp present at colonoscopy follow up). A negative Cologuard test result does not guarantee the absence of CRC or advanced adenoma (pre-cancer). The current Cologuard screening interval is every 3 years. ([place] [employer] and U.S. Multi-Society Task Force). Cologuard performance data in a 10,000 patient pivotal study using colonoscopy as the reference method can be accessed at the following location: www.GI Track/results. Additional description of the Cologuard test process, warnings and precautions can be found at www.cologuard.com. Stool 11/05/2024 11:4 5 AM MAT ROLLER 11/06/2024 10:00 AM MAT ROLLER us Cassandra Chavez BLACKSM[employer] SUPERVISOR LAB BODY FLUIDS AND STOO LS ORDERABLES Final Result [facility] (CLIA #:[id number]) [place] [address] * eGFR (12/26/2023 11:48 AM CDT) eGFR 65 mL/min/1. 73 m2 Comment: Interpretive Data Reference Interval Normal >/= 90 mL/min/1.73m2 Mildly decreased* 60 - 89 mL/min/1.73m2 Mildly to moderately decreased 45 - 59 mL/min/1.73m2 Moderately to severely decreased 30 - 44 mL/min/1.73m2 Severely decreased 15 - 29 mL/min/1.73m2 Kidney Failure < 15 mL/min/1.73m2 *Relative to young adult level Estimated glomerular filtration rate is determined by the 2020 CKD-EPI equation recommended by the National Kidney Foundation (A Unifying Approach to GFR Estimation: Recommendations of the NKF-ASK Task Force on Reassessing the Inclusion of Race in Diagnosing Kidney Disease, JASN 2020). The CKD-EPI equation should not be used for patients with unstable renal function and has not been validated in children and those over 70. Current interpretive data was last reviewed 2021. Testing performed by: [facility], [address], [place] [address] Blood 12/26/2023 11:4 8 AM CDT 12/26/2023 11:48 AM CDT Fabio Oviedo MD LAB BLOOD ORDERABLES F inal Result JESE [id number] [address] Department [place] [address] * POCT lipid panel (11/30/2023 10:11 AM MAT ROLLER) Cholesterol, POC 109 mg/dL Comment:GLU = 97 HDL, POC 61 mg/dL Triglycerides, POC <45 mg/dL LDL Cholesterol POC 39 mg/dL Chol/HDL Ratio, POC N/A Non-HDL Cholesterol, POC 48 mg/dL Cholesterol Total, POC 109 mg/dL Capillary blood 11/30/2023 1 0:11 AM MAT ROLLER Lm Andrade MD POINT OF CARE TEST ORDER VERONIQUE Final Result * Dexa Axial Skeleton Bone Density 1 or 2 Site (07/17/2018 10:10 AM CDT) Anatomical Region Laterality Modality Body N/A Digital Radiogra phy 07/17/2018 11:4 1 AM CDT Impressions 07/17/2018 12:29 PM CDT 1. The bone mineral density of the lumbar spine is mildly decreased. 2. The bone mineral density of the left femoral neck is moderately decreased. 3. The bone mineral density of the left total hip is mildly decreased. 4. Overall, the above findings are diagnostic of osteoporosis by WHO criteria. 5. Based on the FRAX fracture risk model, the 10-year probability for major osteoporotic fracture is 10% and that for hip fracture is 1.8%. This 10-year fracture risk estimate was calculated using the risk factors noted in the history above, along with the femoral neck bone density. FRAX is intended to help guide treatment decisions in men over age 50 and postmenopausal women with low bone mass (osteopenia). The National Osteoporosis Foundation (NOF) recommends that FDA-approved medical therapies be considered in postmenopausal women and men age 50 years and older with osteoporosis and those with low bone mass whose 10-year fracture probability by FRAX is >= 20% for major osteoporotic fracture or >= 3% for hip fracture. However, all treatment decisions require clinical judgment and consideration of individual patient factors, including patient preferences, comorbidities, previous drug use, risk factors not captured in the FRAX model (e.g., frailty, falls, vitamin D deficiency, increased bone turnover, interval significant decline in bone density) and possible under- or overestimation of fracture risk by FRAX. General comments regarding interpretation of bone density measurements: A) In children, premenopausal woman and males under age 50 not at increased risk for fractures only Z-scores, not T-scores are used to indicate risk. A Z-score above -2.0 is defined as within the expected range for age and Z-score at or less than -2.0 is below the expected range for age . A Z-score below the expected range for age in a patient with recent fractures and/or chronic corticosteroid treatment is consistent with a diagnosis of osteoporosis. B) In post menopausal women and males over 50, comparison of the measured bone mineral density with the average value in young normal subjects (the T-score ) has been found to be useful in assessing fracture risk. Fracture risk approximately doubles for each 1.0 standard deviation (SD) in individual's hip or spine bone mineral density is below the average value of young normal subjects. The World Health Organization (WHO) has defined T-scores of -1.0 to -2.5 as diagnostic of low bone mass (OSTEOPENIA), and T-scores of -2.5 or lower to be diagnostic of OSTEOPOROSIS, based on the site of lowest bone density. Note that there will be a change in reporting format and reference databases as patients move from the younger population (group A) to the older population (group B) The National Osteoporosis Foundation (www.nof.org) recommends adequate intake of calcium and vitamin D and regular weight-bearing exercise in all patients. They recommend pharmacologic treatment in postmenopausal women and men age 50 and older presenting with any of the followin) Osteoporosis, after appropriate evaluation to exclude secondary causes. 2) A hip or vertebral (clinical or radiographic) fracture, regardless of the bone density. 3) Low bone mass (Osteopenia) and one or more of: other prior fractures, secondary causes associated with high risk of fracture (such as glucocorticoid use or total immobilization), or computed high risk of fracture (10-yr probability of hip fracture >= 3% or a 10-yr probability of any major osteoporosis-related fracture >= 20% based on the U.S.-adapted WHO algorithm), available at http://www.shef.ac.uk/FRAX). Dictated by: Jennifer Cevallos M.D. Electronically signed by: Dottie Heredia M.D. Narrative 07/17/2018 12:29 PM CDT BONE DENSITOMETRY OF THE SPINE AND HIP DATE OF STUDY: 07/17/2018 HISTORY: 58-year-old postmenopausal woman. She is not currently being treated with bone medications. Evaluate bone mineral density. Additional risk factors for fracture: increased risk of secondary osteoporosis from insulin-requiring diabetes. FINDINGS (SPINE): The bone mineral density of L1-L4 was assessed by dual-energy x-ray absorptiometry. The average bone mineral density within this region is 0.879 gm/sq-cm. This is 0.2 standard deviations below the mean of the average bone mineral density for age- and gender-matched subjects (the Z-score). It is 1.5 standard deviations below the mean peak bone mineral density in young adults (the T-score). FINDINGS (FEMORAL NECK): The bone mineral density of the left femoral neck was assessed by dual-energy x-ray absorptiometry. The average bone mineral density within the femoral neck region is 0.560 gm/sq-cm. This is 1.4 standard deviations below the mean of the average bone mineral density for age- and gender-matched subjects (the Z-score). It is 2.6 standard deviations below the mean peak bone mineral density in young adults (the T-score). FINDINGS (TOTAL HIP): The bone mineral density of the left hip was assessed by dual-energy x-ray absorptiometry. The average bone mineral density within the total hip region is 0.694 gm/sq-cm. This is 1.1 standard deviations below the mean of the average bone mineral density for age- and gender-matched subjects (the Z-score). It is 2.0 standard deviations below the mean peak bone mineral density in young adults (the T-score). SUMMARY OF CURRENT RESULTS: Region BMD T-score Z-score AP Spine (L1-L4) 0.879 -1.5 -0.2 Femoral Neck (Left) 0.560 -2.6 -1.4 Total Hip (Left) 0.694 -2.0 -1.1 Procedure Note Dottie Heredia MD - 07/17/2018 BONE DENSITOMETRY OF THE SPINE AND HIP DATE OF STUDY: 07/17/2018 HISTORY: 58-year-old postmenopausal woman. She is not currently being treated with bone medications. Evaluate bone mineral density. Additional risk factors for fracture: increased risk of secondary osteoporosis from insulin-requiring diabetes. FINDINGS (SPINE): The bone mineral density of L1-L4 was assessed by dual-energy x-ray absorptiometry. The average bone mineral density within this region is 0.879 gm/sq-cm. This is 0.2 standard deviations below the mean of the average bone mineral density for age- and gender-matched subjects (the Z-score). It is 1.5 standard deviations below the mean peak bone mineral density in young adults (the T-score). FINDINGS (FEMORAL NECK): The bone mineral density of the left femoral neck was assessed by dual-energy x-ray absorptiometry. The average bone mineral density within the femoral neck region is 0.560 gm/sq-cm. This is 1.4 standard deviations below the mean of the average bone mineral density for age- and gender-matched subjects (the Z-score). It is 2.6 standard deviations below the mean peak bone mineral density in young adults (the T-score). FINDINGS (TOTAL HIP): The bone mineral density of the left hip was assessed by dual-energy x-ray absorptiometry. The average bone mineral density within the total hip region is 0.694 gm/sq-cm. This is 1.1 standard deviations below the mean of the average bone mineral density for age- and gender-matched subjects (the Z-score). It is 2.0 standard deviations below the mean peak bone mineral density in young adults (the T-score). SUMMARY OF CURRENT RESULTS: Region BMD T-score Z-score AP Spine (L1-L4) 0.879 -1.5 -0.2 Femoral Neck (Left) 0.560 -2.6 -1.4 Total Hip (Left) 0.694 -2.0 -1.1 IMPRESSION: 1. The bone mineral density of the lumbar spine is mildly decreased. 2. The bone mineral density of the left femoral neck is moderately decreased. 3. The bone mineral density of the left total hip is mildly decreased. 4. Overall, the above findings are diagnostic of osteoporosis by WHO criteria. 5. Based on the FRAX fracture risk model, the 10-year probability for major osteoporotic fracture is 10% and that for hip fracture is 1.8%. This 10-year fracture risk estimate was calculated using the risk factors noted in the history above, along with the femoral neck bone density. FRAX is intended to help guide treatment decisions in men over age 50 and postmenopausal women with low bone mass (osteopenia). The National Osteoporosis Foundation (NOF) recommends that FDA-approved medical therapies be considered in postmenopausal women and men age 50 years and older with osteoporosis and those with low bone mass whose 10-year fracture probability by FRAX is >= 20% for major osteoporotic fracture or >= 3% for hip fracture. However, all treatment decisions require clinical judgment and consideration of individual patient factors, including patient preferences, comorbidities, previous drug use, risk factors not captured in the FRAX model (e.g., frailty, falls, vitamin D deficiency, increased bone turnover, interval significant decline in bone density) and possible under- or overestimation of fracture risk by FRAX. General comments regarding interpretation of bone density measurements: A) In children, premenopausal woman and males under age 50 not at increased risk for fractures only Z-scores, not T-scores are used to indicate risk. A Z-score above -2.0 is defined as within the expected range for age and Z-score at or less than -2.0 is below the expected range for age . A Z-score below the expected range for age in a patient with recent fractures and/or chronic corticosteroid treatment is consistent with a diagnosis of osteoporosis. B) In post menopausal women and males over 50, comparison of the measured bone mineral density with the average value in young normal subjects (the T-score ) has been found to be useful in assessing fracture risk. Fracture risk approximately doubles for each 1.0 standard deviation (SD) in individual's hip or spine bone mineral density is below the average value of young normal subjects. The World Health Organization (WHO) has defined T-scores of -1.0 to -2.5 as diagnostic of low bone mass (OSTEOPENIA), and T-scores of -2.5 or lower to be diagnostic of OSTEOPOROSIS, based on the site of lowest bone density. Note that there will be a change in reporting format and reference databases as patients move from the younger population (group A) to the older population (group B) The National Osteoporosis Foundation (www.nof.org) recommends adequate intake of calcium and vitamin D and regular weight-bearing exercise in all patients. They recommend pharmacologic treatment in postmenopausal women and men age 50 and older presenting with any of the followin) Osteoporosis, after appropriate evaluation to exclude secondary causes. 2) A hip or vertebral (clinical or radiographic) fracture, regardless of the bone density. 3) Low bone mass (Osteopenia) and one or more of: other prior fractures, secondary causes associated with high risk of fracture (such as glucocorticoid use or total immobilization), or computed high risk of fracture (10-yr probability of hip fracture >= 3% or a 10-yr probability of any major osteoporosis-related fracture >= 20% based on the U.S.-adapted WHO algorithm), available at http://www.shef.ac.uk/FRAX). Dictated by: Jennifer Cevallos M.D. Electronically signed by: Dottie Heredia M.D. Alfonso Russell MD IMG DXA PROCEDURES Final Resu lt from Last 3 Months or Most Recently Relevant to [place] [address] [facility] [place] [address] [facility] MEDICARE [facility] AETNA MEDICARE AETNA MEDICARE GOLD Care Teams Collar Stay Fuser Tender Relationship Specialty Start Date End Date Alfonso Russell MD PCP - General Internal Medicine 07/11/23 Cassandra Siddiqi, RN Registered Nurse Pulmonary Disease 09/13/22
--- OUTSIDE RECORDS SUMMARY | 2025-02-14 00:03 | XMS_ITS | Encounter Summary ---
Author Organization [facility] Address [address] [facility] [address] [place] [address] Phone Care Team Providers Care Car Attendant Name Role Phone Cassandra Siddiqi RN Unavailable Medina Alfonso Fraia MD Primary Care Provider [phone] Encounter Details Date Type Department Care Team (Late st Contact Info) Description 01/24/[address] 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 Lynch * Telephone Encounter - Concha Chatman - 01/24/2025 10:52 AM CDT CARDIOLOGY NEW PATIENT RECORDS REVIEW Insurance Information Insurance Library Insurance Provider: [employer] Medicare Group number: Diagnosis and Referring Provider Information (Check for Referrals in [facility]) Cardiac Diagnosis: Persistent Afib- Referred to Dr. Lynch Referring Provider: DANITA FRANCISCO Referring Provider Specialty: Cardiology Referring Provider Current/Former Registered Dietitian (if different from referring provider): Current/Former Registered Dietitian Phone: Questions to Determine Placement for Specialty Clinics Cardiology-Oncology Have you ever been diagnosed with cancer or had treatment: no When: Where: Maternal- Cardiology (Females Only) Are you or had a baby in the past year: no Sports Medicine Do you regularly exercise or play sports: no Are the symptoms or concerns associated with acviity: no Hypertension (If yes, must be referred by MD) Are you a hemodialysis or peritoneal dialysis patient: no Referring provider: Cardiology History Questions Have you been hospitalized for cardiac issues: yes When: 2022 Where: [place], [place] Have you had an echo: yes When: September 2023 Where: [place] Have you had a stress test: yes When: January 2022 Where: [place] Have you had an EKG: yes When: December 2024 Where: [place] Have you had a holter monitor: no Have you had cardiac imaging(CT or MRI): no Testing/imaging: When: Where: Have you had any procedures (cath, CABG, cardioversion, or ablation): yes Cardioversion When: January 2024 Where: [place], [place] Have you had a sleep study done: yes When: May 2024 Where: [facility] Do you have an implantable cardiac device: no Type: [place]: When: Where: Appointment Details Date: Time: Location: Provider: documented in this encounter Plan of Treatment Scheduled Procedures Name Priority Associated Diagnoses Date/Ti me COLONOSCOPY Open Access Encounter for screening colonoscopy COLONOSCOPY Colon cancer screening COLONOSCOPY Encounter for screening colonoscopy documented as of this encounter Visit Diagnoses Not on filedocumented in this encounter Care Teams Car Attendant Relationship Specialty Start Date End Date Alfonso Russell MD PCP - General Internal Medicine 07/11/23 Cassandra Siddiqi, RN Registered Nurse Pulmonary Disease 09/13/22 documented as of this encounter
--- OUTSIDE RECORDS SUMMARY | 2025-02-14 00:03 | XMS_ITS | Referral Summary ---
Author Organization [facility] Address [address] [place] [address] Care Team Providers Care Bush Hog Operator Name Role Phone Cassandra Siddiqi RN Unavailable Medina Alfonso Faria MD Primary Care Provider [phone] Encounters Date Type Department Care Team Description 01/24/2025 Telephone [facility] Cardiology [address] [place] [address] [place] [address] Concha Chatman 01/22/[address] [facility] Cardiology [address] [place] [phone] Carin Lebron MD 01/22/2025 11:30 AM CDT Office Visit [facility] Cardiology [address] [place] [phone] Latoya Zambrano NP Encounter for monitoring flecainide therapy (Primary Dx); ROSALVA (obstructive sleep apnea); Essential hypertension; Morbid obesity (HCC); Other hyperlipidemia; Persistent atrial fibrillation (HCC) 12/27/2024 Orders Only [facility] [address] [facility] [address] [place] [address] Alfonso Russell MD from Last 3 Months Allergies No known active allergies Medications glucagon [...] 3 01/17/20 19 Active inhalational spacing device (CHERRI COREAS [facility]) spacer 1 Doses/Fill continuously as needed (To [...] Syringe Ultra-Fine 0.3 mL 31 gauge x / syringe 12/04/19 24 Active flecainide (TAMBOCOR) 50 [...] 10/28/2024 Assessment & Plan (10/28/2024 10:14 AM PAPERBOARD BOX MAKER): Continue Xanax PRN (use, safety, s/e reviewed) Encounter for screening colonoscopy 01/02/2024 Assessment & Plan (10/28/2024 10:13 AM PAPERBOARD BOX MAKER): Cologuard referral Persistent atrial fibrillation 09/21/2023 Allergic [...] Getting cortisone injection prior to leaving for [facility]. ROSALVA (obstructive sleep apnea) 03/24/2016 Overview (01/06/2017): ROSALVA on CPAP Assessment & Plan (10/28/2024 10:15 AM PAPERBOARD BOX MAKER): Follows with Pulmonary, in-lab SS pending Assessment & Plan (04/28/2017 4:34 PM CDT): Continue CPAP Essential hypertension 03/24/2016 Overview (01/06/2017): Essential hypertension Assessment & Plan (10/28/2024 10:23 AM PAPERBOARD BOX MAKER): BP elevated, is seeing Cardiology next month [...] CDT): Continue f/u with Dr. Candelaria at [facility]. Refilled albuterol inhaler. Morbid obesity 03/24/2016 Overview (01/06/2017): Morbid obesity, unspecified obesity type Assessment & Plan (04/28/2017 4:10 PM CDT): Had good response to [facility]. Type 1 diabetes mellitus 03/24/2016 Overview (01/06/2017): Type 1 diabetes mellitus with hyperglycemia, with long-term current use of insulin Assessment & Plan (10/28/2024 10:15 AM PAPERBOARD BOX MAKER): Follows with Dr. Lee-ELAINA Assessment & Plan (04/28/2017 4:36 PM CDT): Excellent A1c control, 6.3-6.5%. Sees Jesus regularly. Sees ophfrederic regularly. Unremarkable plantar foot monofilament exam. She [...] Will investigate these options upon returning from [facility]. Resolved Problems Problem Noted Date Diagnosed Date Resolved Date Palpitations 08/29/2023 10/28/2024 Other chest pain 02/08/2022 12/22/2022 Effusion of knee 05/08/2017 12/22/2022 BMI 38.0-38.9,adult 04/28/2017 12/23/19 23 Assessment & Plan (04/28/2017 3:41 PM CDT): BMI Follow-up includes: bmi done today . Annual physical exam 04/28/2017 023 Assessment & Plan (04/28/2017 4:37 PM CDT): Colon cancer screening: Has deferred repeatedly in past due to cost. She knows the importance of getting this done based on previous conversations. Breast cancer screening: Per health and safety director. Cervical cancer screening: Per health and safety director. Vaccines: PNA 2007. Viral sinusitis 11/02/2016 12/22/2022 Dysphonia 08/30/2016 12/22/2022 Disorder of lung 01/14/2015 12/22/2022 Pain of hand 11/04/2014 12/22/2022 Acquired trigger finger 03/08/201210/03 Shortness of breath 12/23/19 Immunizations Immunization Administration Dates Next Due Influenza, Quadrivalent, Rec ombinant, Egg Free, Preservative Free, Intramuscular 07/28/2020 Influenza, Quadrivalent, Spl it, Preservative Free, Intramuscular 07/11/2023 Pfizer SARS-CoV-2 Monovalent Vaccination (12+ Yrs) PURPLE 02/15/2022,07/30/2021,12/18/2020,11/27 Pneumococcal Polysaccharide PPV23 03/25/2015 Social History Tobacco Use Types Packs/Day Years Used Date Smoking Tobacco: Never Smokeless Tobacco: Never Tobacco Cessation:Counseling Given: Not Answered PHQ-2 Answer Date Recorded PHQ-2 Total Score (If total score is 3 or more points, staff should administer the PHQ-9) 0 01/01/2024 Comments Unknown Sex and Gender Information Value Date Recorded Sex Assigned at Not on file 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 Gender Identity Female 07/18/2018 7:42 AM CDT Sexual Orientation Not on file Last Filed Vital Signs Vital Sign Reading Time Taken Comments Blood Pressure 110/62 01/22/2025 11:44 AM CDT Pulse 93 01/22/2025 11:44 AM CDT Temperature 36.6 C (97.8 F) 10/16/2024 8:03 AM PAPERBOARD BOX MAKER Respiratory Rate 18 10/16/2024 8:03 AM PAPERBOARD BOX MAKER Oxygen Saturation 97% 01/22/2025 11:44 AM CDT [...] cancer screening COLONOSCOPY Encounter for screening colonoscopy Procedures Procedure Name Priority Date/Time Associated Diagnosis Comments ECG 12-LEAD Routine 01/22/2025 11:52 AM CDT Encounter for monitoring flecainide therapy STOOL DNA COLOGUARD Routine 11/05/2024 11:45 AM PAPERBOARD BOX MAKER Encounter for screening colonoscopy EGFR Routine 12/26/2023 11:48 AM CDT Persistent atrial fibrillation (HCC) POCT LIPID PANEL Routine 11/30/2023 10:1 1 AM PAPERBOARD BOX MAKER Lipid screening DEXA AXIAL SKELETON BONE DENSITY 1 OR MORE SITES Schedule Routine, Read Routine (OP Routine) 07/17/2018 10:10 AM CDT Postmenopausal from Last 3 Months or Most Recently Relevant to Health Maintenance Results * ECG 12 lead (01/22/2025 11:52 AM CDT) Latoya Zambrano NP ECG ORDERABLES Final Result * Stool DNA - Cologuard (11/05/2024 11:45 AM PAPERBOARD BOX MAKER) Stool DNA - Cologuard Negative Negative [facility] (CLIA #:[id number]) Comment: NEGATIVE TEST RESULT. A negative Cologuard [...] (Ally Zhu al, N Engl J Med 2014;370(14):6977-0203) The normal value (reference range) for this assay is negative. COLOGUARD RE-SCREENING RECOMMENDATION: Periodic colorectal cancer screening is an important part of preventive healthcare for asymptomatic individuals at average risk for colorectal cancer. Following a negative Cologuard result, the [place] Cancer Society and U.S. Multi-Society Task Force screening guidelines recommend a Cologuard re-screening interval of 3 years. References: [place] Cancer Society Guideline for Colorectal Cancer Screening: https://www.cancer.org/cancer/kegyy-bihhcg-vwzxpa/eenqjvcoc-jjpcekxhc-kzcesca/ac s-rec ommendations.html.; Van DK, Chava MORROW, Bobby FreyK, Colorectal Cancer Screening: Recommendations for Physicians and Patients from the U.S. Multi-Society Task Force on Colorectal Cancer Screening , Am J Gastroenterology 2017; 112:1998-9959. TEST DESCRIPTION: Composite algorithmic analysis of stool [...] screened with both Cologuard and colonoscopy. (Ally Witt et al, N Engl J Med 2014;370(14):8055-9686.) Cologuard may produce a false negative or false positive result (no colorectal cancer or precancerous polyp present at colonoscopy follow up). A negative Cologuard test result does not guarantee the absence of CRC or advanced adenoma (pre-cancer). The current Cologuard screening interval is every 3 years. ([place] Cancer Society and U.S. Multi-Society Task Force). Cologuard performance data in a 10,000 patient pivotal study using colonoscopy as the reference method can be accessed at the following location: www.[employer]/results. Additional description of the Cologuard test process, warnings and precautions can be found at www.colDividedrd.com. Stool 11/05/2024 11:4 5 AM PAPERBOARD BOX MAKER 11/06/2024 10:00 AM PAPERBOARD BOX MAKER us Cassandra Chavez NP LAB BODY FLUIDS AND STOO LS ORDERABLES Final Result [facility] (CLIA #:[id number]) [place] [address] [place] [address] * eGFR (12/26/2023 11:48 AM CDT) eGFR [...] was last reviewed 2021. Testing performed by: [facility], [address], [place] [address] Blood 12/26/2023 11:4 8 AM CDT 12/26/2023 11:48 AM CDT us Fabio Oviedo MD LAB BLOOD ORDERABLES F inal Result JESE [id number] [facility] [place] [address] * POCT lipid panel (11/30/2023 10:11 AM PAPERBOARD BOX MAKER) Cholesterol, POC 109 mg/dL Comment:GLU = 97 HDL, POC 61 mg/dL Triglycerides, POC <45 mg/dL LDL Cholesterol POC 39 mg/dL Chol/HDL Ratio, POC N/A Non-HDL Cholesterol, POC 48 mg/dL Cholesterol Total, POC 109 mg/dL Capillary blood 11/30/2023 1 0:11 AM PAPERBOARD BOX MAKER Lm Andrade MD POINT OF CARE TEST ORDER VEROINQUE Final Result * Dexa Axial Skeleton Bone [...] Most Recently Relevant to Health Maintenance [facility] [place] [address] [place] [address] [place] [address] [employer] MEDICARE GOLD Care Teams Bush Hog Operator Relationship Specialty Start Date End Date Alfonso Russell MD PCP - General Internal Medicine 07/11/23 Cassandra Siddiqi, RN Registered Nurse Pulmonary Disease 09/13/22
--- NOTE | 2025-02-14 07:00 | ECG_ITS ---
Test Date: 2025-02-14 07:24:01 Measurements Intervals [place] Rate: 71 P: 0 [place]: 0 QRS: 95 QRSD: 126 T: 29 QT: 405 QTc: 443 Interpretive Statements ATRIAL FIBRILLATION BORDERLINE RIGHT AXIS DEVIATION [QRS AXIS > 90] MODERATE INTRAVENTRICULAR CONDUCTION DELAY [110+ ms QRS DURATION] ABNORMAL ECG No previous ECG available for comparison Electronically Signed On 02-14-2025 09:57:40 CDT by Amilcar Rodas M.D.
[2025-02-14 07:26] VITALS: BP 125/70; PULSE 71; RESP 18; TEMP 36.3; O2SAT 97; BMI 38.5
[2025-02-14 07:44] LABS: Basophils Percent Auto 0.4 % (0.2-1.2); Eosinophils Absolute Auto 0.2 K/mm3 (0-0.3); Hematocrit 35.6 % (37.0-47.0); Hemoglobin 11.5 g/dL (12.0-15.0); Immature Granulocyte Absolute 0.01 K/mm3 (0.00-0.031); Immature Granulocyte Percent A 0.2 % (0-0.5); Lymphocytes Absolute Auto 2.03 K/mm3 (0.9-3.2); Lymphocytes Percent Auto 35.9 % (18.3-44.2); Mean Corpuscular HGB Conc 32.3 g/dl (32-36); Mean Corpuscular Hemoglobin 32.1 pg (26-34); Mean Corpuscular Volume 99.4 fl (80-100); Mean Platelet Volume 9.5 fl (7.4-10.4); Monocytes Absolute Auto 0.5 K/mm3 (0.1-0.6); Monocytes Percent Auto 9.2 % (2.6-8.5); Neutrophils Absolute Auto 2.9 K/mm3 (1.3-6.7); Neutrophils Percent Auto 51.3 % (45.5-73.1); Platelet Count Result 270 k/mm3 (150-375); Red Blood Count 3.58 M/mm3 (4.2-5.4); Red Cell Distribution Width 12.6 % (11.5-14.5); White Blood Count 5.7 K/mm3 (4.5-10.0)
[2025-02-14 07:55] LABS: Anion Gap 6 mmol/L (4-12); Blood Urea Nitrogen 31 mg/dL (7-17); Calcium 9.1 mg/dL (8.4-10.2); Carbon Dioxide 29 mmol/L (22-30); Chloride 101 mmol/L (98-107); Estimated CRCL calculation 59 ml/min; Estimated Glomerular Filt Rate > 60; Glucose 226 mg/dL (65-110); Magnesium 1.6 mg/dL (1.6-2.3); Potassium 3.9 mmol/L (3.4-5.0); Sodium 136 mmol/L (137-145)
--- NOTE | 2025-02-14 08:30 | ECG_ITS ---
Test Date: 2025-02-14 08:50:58 Measurements Intervals [place] Rate: 58 P: 84 CT: 220 QRS: 93 QRSD: 128 T: 34 QT: 443 QTc: 438 Interpretive Statements SINUS BRADYCARDIA WITH FIRST DEGREE AV BLOCK BORDERLINE RIGHT AXIS DEVIATION [QRS AXIS > 90] MODERATE INTRAVENTRICULAR CONDUCTION DELAY [110+ ms QRS DURATION] ABNORMAL ECG Compared to ECG 02/14/2025 07:24:01 First degree AV block now present Atrial fibrillation no longer present Electronically Signed On 02-14-2025 09:58:42 CDT by Amilcar Rodas M.D.
--- NOTE | 2025-02-14 08:33 | WPDANESEPPF ---
Anes - Initial Pre Proc Eval Procedure: Operation Date: 02/14/25 08:30 Proposed Procedures p Electrical Cardioversion - Carin Lebron MD Date/Time: 02/14/25 08:33 Surgeon: Carin Lebron MD Pre Op Diagnosis: A Fib Patient Data Age: 64 Gender: F Height: 1.52 m Weight: 89.5 kg Last Vital Signs Temp 36.3 C L 02/14/25 07:26 Pulse 71 02/14/25 07:26 Resp 18 02/14/25 07:26 BP 125/70 02/14/25 07:26 Pulse Ox 97 02/14/25 07:26 O2 Del Method Room Air 02/14/25 07:26 Allergies Allergy/AdvReac Type Severity Reaction Status Date / Time hydrocodone AdvReac Nausea Verified 02/14/25 07:25 tramadol AdvReac Nausea Verified 02/14/25 07:25 Home Medications Medication Instructions Recorded Confirmed Type albuterol sulfate 2.5 mg/3 mL 2.5 mg inhalation QID PRN 01/23/22 02/13/25 History (0.083 %) solution for nebulization Shortness of Breath albuterol sulfate 90 mcg/actuation 2 puff inhalation Q6H PRN Wheezing 01/23/22 02/13/25 History aerosol inhaler alprazolam 0.5 mg tablet 0.5 mg PO TID PRN Anxiety 01/23/22 02/13/25 History ezetimibe 10 mg tablet 10 mg PO QAM 01/23/22 02/13/25 History fluticasone 500 mcg-salmeterol 50 2 inh inhalation QAM 01/23/22 02/13/25 History mcg/dose blistr powdr for inhalation (Advair Diskus) losartan 100 1 tablet PO QAM 01/23/22 02/13/25 History mg-hydrochlorothiazide 25 mg tablet nebivolol 10 mg tablet 10 mg PO QAM 01/23/22 02/13/25 History rosuvastatin 20 mg tablet 20 mg PO DAILY 01/23/22 02/13/25 History venlafaxine 75 mg capsule,extended 75 mg PO QAM 01/23/22 02/13/25 History release 24 hr apixaban 5 mg tablet (Eliquis) 5 mg PO BID 10/20/23 02/13/25 History ftqpbyyc-ooi-mccn 4 mg-folic acid 1 tablet PO DAILY 10/20/23 02/13/25 History 200 mcg-vit K 25 mcg-lutein tablet (Centrum Minis Women 50 Plus) fexofenadine 60 mg tablet (Allergy 60 mg PO DAILY 02/01/24 02/13/25 History Relief (fexofenadine)) flecainide 50 mg tablet 50 mg PO BID 02/01/24 02/13/25 History glucagon 3 mg/actuation nasal 3 mg intranasal PRN PRN 02/01/24 02/13/25 History spray (Baqsimi) Hypoglycemia Laboratory Tests 02/14/25 07:33 WBC 5.7 K/mm3 (4.5-10.0) RBC 3.58 L M/mm3 (4.2-5.4) Hgb 11.5 L g/dL (12.0-15.0) Hct 35.6 L % (37.0-47.0) MCV 99.4 fl (80-100) MCH 32.1 pg (26-34) MCHC 32.3 g/dl (32-36) RDW 12.6 % (11.5-14.5) Plt Count 270 k/mm3 (150-375) MPV 9.5 fl (7.4-10.4) Immature Gran % (Auto) 0.2 % (0-0.5) Neut % (Auto) 51.3 % (45.5-73.1) Lymph % (Auto) 35.9 % (18.3-44.2) [place] % (Auto) 9.2 H % (2.6-8.5) Eos % (Auto) 3.0 % (0-4.4) Baso % (Auto) 0.4 % (0.2-1.2) Lymph # (Auto) 2.03 K/mm3 (0.9-3.2) [place] # (Auto) 0.5 K/mm3 (0.1-0.6) Eos # (Auto) 0.2 K/mm3 (0-0.3) Baso # (Auto) 0.0 K/mm3 (0.0-0.1) Abs Immat Gran (auto) 0.01 K/mm3 (0.00-0.031) Absolute Neuts (auto) 2.9 K/mm3 (1.3-6.7) Absolute Nucleated RBC 0.000 K/mm3 (0.0-0.012) Nucleated RBC % 0.0 % (0.0-0.2) Sodium 136 L mmol/L (137-145) Potassium 3.9 mmol/L (3.4-5.0) Chloride 101 mmol/L (98-107) Carbon Dioxide 29 mmol/L (22-30) Anion Gap 6 mmol/L (4-12) BUN 31 H mg/dL (7-17) Creatinine 0.82 mg/dL (0.7-1.0) Estim Creat Clear Calc 59 ml/min Estimated GFR > 60 (59 - ) Glucose 226 H mg/dL (65-110) Calcium 9.1 mg/dL (8.4-10.2) Magnesium 1.6 mg/dL (1.6-2.3) Patient hx anesthesia problems: none Family hx anesthesia problems: none Results Review: All pre-operative results and documents have been reviewed as part of the pre-operative evaluation. [facility] Past Medical History Medical History ROSALVA (obstructive sleep apnea) Atrial fibrillation Asthma Anxiety Diabetes mellitus Hyperlipidemia Hypertension Surgical History Surgical History H/O section Family History Family History Father Heart disease, Onset Age: 70 CHF (congestive heart failure) Hx of CABG DM type 2 (diabetes mellitus, type 2) Mother Heart disease, Onset Age: 70 Hx of CABG Parkinsons Dementia TIA (transient ischemic attack) Sibling Heart valve replaced Breast cancer Bladder cancer History of heart artery stent Social History Social History Smoking status: Never smoker Second hand tobacco smoke exposure: No Alcohol intake: never Substance use: never Substance use type: does not use Living arrangements: with family Gender identity (if verbalized by the patient): Female Spiritual care concerns: No Anes - Eval Final PreProcedure Day of Procedure 02/14/25 08:33 Patient weight: obese Heart: irregular rhythm Lungs: decreased breath sounds Airway: Mallampati scale class II Neurological: alert and oriented Last oral intake: >/= 8 hours ASA classification: III Emergent: no Anesthetic plan: proceed Results Review: All pre-operative results and documents have been reviewed as part of the pre-operative evaluation. Informed Consent: The patient's anesthetic plan and its attendant risks and benefits were discussed with the patient/family/POA. Questions were solicited and answers provided to the satisfaction of the patient/family/POA.
--- NOTE | 2025-02-14 08:59 | P.PCNCVR_ITS ---
Cardioversion Cardioversion Date of procedure: 02/14/25 Procedure: Synchronized electrical cardioversion Pre-op diagnosis: Atrial fibrillation Post-op diagnosis: Other (Successful cardioversion to sinus rhythm. ) Indications: Atrial fibrillation Description of procedure: Written informed consent obtained. Defibrillator pads placed in an anterior- posterior position. Time out performed by ROSEANNA Dowell. Sedation was administered by the Anesthesia team. Once patient was adequately sedated, synchronized electrical cardioversion was performed with 1 shock at 200 joules, which successfully restored sinus rhythm. Patient's hemodynamics and respiratory status was monitored throughout the procedure. No periprocedural complications. Sedation: Sedation was administered by the Anesthesia team. Findings: Successful synchronized electrical cardioversion to sinus rhythm with 1 shock at 200 joules. Conclusion: Successful synchronized electrical cardioversion to sinus rhythm with 1 shock at 200 joules.
--- NOTE | 2025-02-14 08:59 | WPDHPUPDATE1 ---
History and Physical Update Update Date/Time: 02/14/25 08:59 History and Physical has been reviewed, including an updated exam of the patient. There are NO changes in the patient's condition. Risks, benefits, and alternatives have been discussed and questions answered. Patient agrees to proceed with procedure.
[2025-02-14 09:00] VITALS: BP 144/69; PULSE 61; RESP 12; O2SAT 95
[2025-02-14 09:15] VITALS: BP 124/67; PULSE 69; RESP 13; O2SAT 95
[2025-02-14 09:30] VITALS: BP 117/63; PULSE 58; RESP 13; O2SAT 95
[2025-02-14 09:45] VITALS: BP 118/60; PULSE 58; RESP 13; O2SAT 95
[2025-02-14 10:00] VITALS: BP 123/58; PULSE 61; RESP 18; O2SAT 95
--- NOTE | 2025-02-14 10:15 | SUR.PHASEII ---
Discharge instructions reviewed with pt and family. Understanding verbalized and copy to pt. D/C in stable condition via wheelchair to hospital exit. Family waiting at exit
== END 2025-02-14 10:15 | disposition home or self-care (01) ==
PROVIDERS: PCP Internal Medicine; Visit Provider Internal Medicine
PROC: 5A2204Z Restoration of Cardiac Rhythm, Single (ICD-10-PCS; principal; 2025-02-14 08:30)
DX: I48.91 Unspecified atrial fibrillation (principal)
CPT/HCPCS: 36415; 80048; 83735; 85025; 92960; J2250; J2704; J3010; J7040